=== PATIENT | male | born 1955 | race Caucasian/White ===

== ENCOUNTER 2018-02-24 14:02 | Inpatient (IN) ==
--- NOTE | 2018-02-24 16:50 | ED ---
HPI General Chief complaint: Urogenital-Male Stated complaint: blood in urine Time Seen by Provider: 02/24/18 16:01 Source: patient Mode of arrival: ambulatory Limitations: no limitations History of Present Illness HPI Narrative: Patient is a 63-year-old male here today for gross hematuria since yesterday. States was gradual onset and got progressively worse over the past 24 hours. Noticed some clots today. He states some chronic low back pain, and states "I can feel my kidneys". Denies nausea, vomiting, diarrhea, abdominal pain, fever. Nothing makes symptoms better, nothing makes it worse, but is most noticeable with urination. He is a 1/2 pack per day smoker. MD Complaint: Denies testicle pain, testicle swelling, penile discharge, dysuria , hernia, genital injury and possible STD exposure Onset (ago): day(s) (24 hours) Duration: constant Location: Reports penis, right flank and left flank Radiation: Denies penis, right testicle, left testicle, right inguinal region and left inguinal region Severity: moderate Severity scale (1-10): 1 Quality: Denies aching, burning and sharp Relieving factors: none Exacerbating factors: urination Denies new medication, recent surgery, trauma, new sexual partner and lifting Reports denies other symptoms Related Data Home Medications Medication Instructions Recorded Confirmed aspirin [Aspirin Low Dose] 81 mg PO BID 02/24/18 02/24/18 Allergies Allergy/AdvReac Type Severity Reaction Status Date / Time codeine Allergy Severe Nightmare Verified 02/24/18 16:12 Review of Systems ROS: all other systems reviewed are negative [facility] Medical History Medical History Kidney disease (Acute) Surgical History Surgical History H/O hernia repair (Acute) Hx of tonsillectomy (Acute) Family History Family History Other Family history normal Social History Social History Substance History: No History of Abuse Second Hand Smoke Exposure: No Smoking Status: Heavy tobacco smoker Tobacco Type: Cigarettes How Often Do You Have a Drink Containing Alcohol: Never Recent Travel in [facility] within the Last 8 Weeks: No Recent Out of Country Travel within the Last 8 Weeks: No Immunization History Tetanus Immunization: Unsure Exam Narrative Exam Narrative: GENERAL: Pt awake, alert, oriented. No acute distress. SKIN: Focused skin assessment warm/dry. HEAD: Atraumatic. Normocephalic. EYES: Pupils equal and round. No scleral icterus. No injection or drainage. ENT: No nasal bleeding or discharge. Mucous membranes pink and moist. NECK: Trachea midline. No JVD. CARDIOVASCULAR: Regular rate and rhythm. No murmur appreciated. RESPIRATORY: No accessory muscle use. Clear to auscultation. Breath sounds equal bilaterally. GASTROINTESTINAL: Abdomen soft, non-tender, nondistended. Hepatic and splenic margins not palpable. Bladder is non distended. (+) gross hematuria with clotting. Mild CVA tenderness bilatearlly, no bladder distension. MUSCULOSKELETAL: No obvious deformities. No clubbing. No cyanosis. No edema. NEUROLOGICAL: Awake and alert. No obvious cranial nerve deficits. Motor grossly within normal limits. Normal speech. PSYCHIATRIC: Appropriate mood and affect; insight and judgment normal. Course Initial Documented Vital Signs Temperature 98.8 F 02/24/18 14:04 Pulse Rate 70 02/24/18 14:04 Respiratory Rate 18 02/24/18 14:04 Blood Pressure 157/70 H 02/24/18 14:04 Pulse Oximetry 100 02/24/18 14:04 Last Documented Vital Signs Temperature 98.3 F 02/28/18 12:00 Pulse Rate 58 L 02/28/18 12:00 Respiratory Rate 18 02/28/18 12:00 Blood Pressure 149/72 H 02/28/18 12:00 Pulse Oximetry 98 02/28/18 12:00 Discharge Plan Discharge Disposition Patient Disposition: 30 Still Patient Discharge Condition Condition: Stable Physicians Team ED Provider: Damian Pleitez ED Midlevel Provider: Ady Gandhi Primary Care Provider: Primary Care Alfonso,Helga Attending Provider: Oxana Wilson Other Providers: Rajeev Braxton ; Cyrus Morton Status ED Status: Left Department Discharge Information Discharge Date/Time: 02/24/18 21:44 Medical Decision Making MDM Narrative Medical decision making narrative: Medical decision making narrative: During the course of the patients emergency department visit, the patients history, examination, and differential diagnosis were reviewed with the patient. He is a half pack per day smoker which increases his risk of bladder malignancy. He does not currently take any medication except for otc asa. The patient was initially provided routine labwork, ua, iv access done labwork significant for a macrocytic anemia, chloride of 121, egfr of 9, BUN of 80, Cr of 6.37, bicarb is 9.8, calcium of 6.3, protein corrected of 6.1, and (+) urinary tract infection with gross hematuira. Coags were ordered, instructed nurse to insert second IV line. Rocephin IV administered for uti, call out to nephrology for consult for renal failure. Spoke with Dr. Chaves, assembler latches and springs, who stated to order a bicarb drip-150meq in water at 100mls / hr and do CT abdomen no IV contrast-stone protocol. The case has been discussed with JAVIER who has agreed to admit the patient today. They are aware that we have discussed the case with the assembler latches and springs. They also are aware that he is on a bicarb drip. They are also aware that his potassium is normal. His hypocalcemia has not been addressed. Radiology studies were reviewed and remarkable for--- Medical Screen Exam Complete: Yes Emergency Medical Condition: Yes Medical Screen Exam Complete: Yes Emergency Medical Condition: Yes Differential Diagnosis Differential Diagnosis: Bladder malignancy, BPH, glomerulonephritis, renal failure Lab Data Lab results reviewed: Yes I reviewed the patient's lab results. Result diagrams: 02/28/18 08:53 02/28/18 08:53 Lab Results 02/24/18 02/24/18 02/24/18 Range/Units 16:15 17:04 17:04 WBC 10.4 (4.0-11.0) th/mm3 RBC 2.65 L (4.50-5.90) mil/mm3 Hgb 9.1 L (13.0-17.0) gm/dL Hct 27.8 L (39.0-51.0) % MCV 104.9 H (80.0-100.0) fL MCH 34.4 H (27.0-34.0) pg MCHC 32.8 (32.0-36.0) % RDW 17.4 H (11.6-17.2) % Plt Count 144 L (150-450) th/mm3 MPV 9.1 (7.0-11.0) fL Prelim Diff (Auto) Slide review pending Neut % (Auto) 77.3 H (16.0-70.0) % Lymph % (Auto) 15.1 (9.0-44.0) % Glynn % (Auto) 6.1 (0.0-8.0) % Eos % (Auto) 0.5 (0.0-4.0) % Baso % (Auto) 1.0 (0.0-2.0) % Neut # (Auto) 8.1 H (1.8-7.7) th/mm3 Lymph # (Auto) 1.6 (1.0-4.8) th/mm3 Glynn # (Auto) 0.6 (0.0-0.9) th/mm3 Eos # (Auto) 0.1 (0.0-0.4) th/mm3 Baso # (Auto) 0.1 (0.0-0.2) th/mm3 WBC Differential . Diff Scan Auto diff confirmed Differential Comment . Platelet Estimate Normal (Normal) Platelet Morphology Normal (Normal) Ovalocytes 1+ H (None) PT (9.8-11.6) sec INR Ratio APTT (24.3-30.1) sec Thrombin Time (13-19) sec Sodium 141 (136-145) meq/L Potassium 4.6 (3.5-5.1) meq/L Chloride 121 H (98-107) meq/L Carbon Dioxide 9.8 L (21.0-32.0) meq/L Anion Gap 10 (5-15) meq/L BUN 80 H (7-18) mg/dL Creatinine 6.37 H (0.60-1.30) mg/dL Estimated GFR 9 L (>89) mL/min Random Glucose 91 (74-106) mg/dL Hemoglobin A1c (4.3-6.0) % Calcium 6.3 L* (8.5-10.1) mg/dL Prot Corrected Calcium 6.1 L* (8.5-10.1) mg/dL Phosphorus (2.5-4.9) mg/dL Magnesium (1.5-2.5) mg/dL Iron (65-175) mcg/dL TIBC (250-450) mcg/dL % Saturation (20-50) % Total Bilirubin 0.2 (0.2-1.0) mg/dL AST 12 L (15-37) U/L ALT 19 (12-78) U/L Alkaline Phosphatase 114 (45-117) U/L Total Protein 7.7 (6.4-8.2) g/dL Total Protein (PEP) (6.4-8.2) gm/dL Albumin 3.8 (3.4-5.0) g/dL Albumin (PEP) (3.50-5.00) gm/dL Albumin/Globulin Ratio (1.39-2.23) Gsidk-3-Weeuzjkei (0.11-0.29) gm/dL Gchsw-9-Yjnolvnrw (0.22-1.00) gm/dL Beta Globulins (0.53-1.03) gm/dL Gamma Globulins (0.50-1.39) gm/dL PEP Pathologist Comment Vitamin B12 (193-986) pg/mL Folate (3.1-17.5) ng/mL TSH (0.358-3.740) uIU/mL Free T4 (0.76-1.46) ng/dL Urine Color Red (Yellw/Straw) Urine Clarity Marked H (Clear) Urine pH 6.0 (5.0-8.5) Ur Specific [place] 1.013 (1.002-1.035) Urine Protein 100 H (Neg-Trace) mg/dL Urine Glucose (UA) 50 (Negative) mg/dL Urine Ketones Negative (Negative) mg/dL Urine Occult Blood Large H (Negative) Urine Nitrate Negative (Negative) Urine Bilirubin Negative (Negative) Urine Urobilinogen Less than 2 (Less than 2) mg/dL Ur Leukocyte Esterase Trace H (Negative) Urine RBC (0-3) /hpf Urine WBC (0-5) /hpf Urine WBC Clumps Many H (None) Micro UA Comment Culture indicated Ur Microscopic Review Not Reportable Urine Culture Comments Culture indicated DANYELL Screen (Neg) Hep Bs Antigen (Nonreactive) Hep C IgG Ab (Nonreactive) Blood Type Blood Type Recheck Antibody Screen MTS Gel Crossmatch 02/24/18 02/24/18 02/24/18 Range/Units 18:33 23:35 23:35 WBC (4.0-11.0) th/mm3 RBC (4.50-5.90) mil/mm3 Hgb 7.7 L (13.0-17.0) gm/dL Hct 22.6 L (39.0-51.0) % MCV (80.0-100.0) fL MCH (27.0-34.0) pg MCHC (32.0-36.0) % RDW (11.6-17.2) % Plt Count (150-450) th/mm3 MPV (7.0-11.0) fL Prelim Diff (Auto) Neut % (Auto) (16.0-70.0) % Lymph % (Auto) (9.0-44.0) % Glynn % (Auto) (0.0-8.0) % Eos % (Auto) (0.0-4.0) % Baso % (Auto) (0.0-2.0) % Neut # (Auto) (1.8-7.7) th/mm3 Lymph # (Auto) (1.0-4.8) th/mm3 Glynn # (Auto) (0.0-0.9) th/mm3 Eos # (Auto) (0.0-0.4) th/mm3 Baso # (Auto) (0.0-0.2) th/mm3 WBC Differential Diff Scan Differential Comment Platelet Estimate (Normal) Platelet Morphology (Normal) Ovalocytes (None) PT 10.4 (9.8-11.6) sec INR 1.0 Ratio APTT 31.3 H (24.3-30.1) sec Thrombin Time 17 (13-19) sec Sodium (136-145) meq/L Potassium (3.5-5.1) meq/L Chloride (98-107) meq/L Carbon Dioxide (21.0-32.0) meq/L Anion Gap (5-15) meq/L BUN (7-18) mg/dL Creatinine (0.60-1.30) mg/dL Estimated GFR (>89) mL/min Random Glucose (74-106) mg/dL Hemoglobin A1c (4.3-6.0) % Calcium (8.5-10.1) mg/dL Prot Corrected Calcium (8.5-10.1) mg/dL Phosphorus (2.5-4.9) mg/dL Magnesium (1.5-2.5) mg/dL Iron (65-175) mcg/dL TIBC (250-450) mcg/dL % Saturation (20-50) % Total Bilirubin (0.2-1.0) mg/dL AST (15-37) U/L ALT (12-78) U/L Alkaline Phosphatase (45-117) U/L Total Protein (6.4-8.2) g/dL Total Protein (PEP) (6.4-8.2) gm/dL Albumin (3.4-5.0) g/dL Albumin (PEP) (3.50-5.00) gm/dL Albumin/Globulin Ratio (1.39-2.23) Fmezb-6-Rtkxkpbhh (0.11-0.29) gm/dL Ldwij-5-Vulfzinwa (0.22-1.00) gm/dL Beta Globulins (0.53-1.03) gm/dL Gamma Globulins (0.50-1.39) gm/dL PEP Pathologist Comment Vitamin B12 (193-986) pg/mL Folate (3.1-17.5) ng/mL TSH (0.358-3.740) uIU/mL Free T4 (0.76-1.46) ng/dL Urine Color (Yellw/Straw) Urine Clarity (Clear) Urine pH (5.0-8.5) Ur Specific [place] (1.002-1.035) Urine Protein (Neg-Trace) mg/dL Urine Glucose (UA) (Negative) mg/dL Urine Ketones (Negative) mg/dL Urine Occult Blood (Negative) Urine Nitrate (Negative) Urine Bilirubin (Negative) Urine Urobilinogen (Less than 2) mg/dL Ur Leukocyte Esterase (Negative) Urine RBC (0-3) /hpf Urine WBC (0-5) /hpf Urine WBC Clumps (None) Micro UA Comment Ur Microscopic Review Urine Culture Comments DANYELL Screen (Neg) Hep Bs Antigen (Nonreactive) Hep C IgG Ab (Nonreactive) Blood Type Blood Type Recheck Antibody Screen MTS Gel Crossmatch 02/25/18 02/25/18 02/25/18 Range/Units 02:08 02:51 02:51 WBC 7.3 (4.0-11.0) th/mm3 RBC 2.13 L (4.50-5.90) mil/mm3 Hgb 7.3 L (13.0-17.0) gm/dL Hct 21.4 L (39.0-51.0) % MCV 100.4 H D (80.0-100.0) fL MCH 34.3 H (27.0-34.0) pg MCHC 34.1 (32.0-36.0) % RDW 16.1 (11.6-17.2) % Plt Count 125 L (150-450) th/mm3 MPV 9.1 (7.0-11.0) fL Prelim Diff (Auto) Neut % (Auto) 81.1 H (16.0-70.0) % Lymph % (Auto) 11.8 (9.0-44.0) % Glynn % (Auto) 6.4 (0.0-8.0) % Eos % (Auto) 0.3 (0.0-4.0) % Baso % (Auto) 0.4 (0.0-2.0) % Neut # (Auto) 5.9 (1.8-7.7) th/mm3 Lymph # (Auto) 0.9 L (1.0-4.8) th/mm3 Glynn # (Auto) 0.5 (0.0-0.9) th/mm3 Eos # (Auto) 0.0 (0.0-0.4) th/mm3 Baso # (Auto) 0.0 (0.0-0.2) th/mm3 WBC Differential . Diff Scan Differential Comment Auto diff final Platelet Estimate (Normal) Platelet Morphology (Normal) Ovalocytes (None) PT (9.8-11.6) sec INR Ratio APTT (24.3-30.1) sec Thrombin Time (13-19) sec Sodium 145 (136-145) meq/L Potassium 4.1 (3.5-5.1) meq/L Chloride 119 H (98-107) meq/L Carbon Dioxide 10.8 L (21.0-32.0) meq/L Anion Gap 15 (5-15) meq/L BUN 76 H (7-18) mg/dL Creatinine 6.10 H (0.60-1.30) mg/dL Estimated GFR 9 L (>89) mL/min Random Glucose 82 (74-106) mg/dL Hemoglobin A1c (4.3-6.0) % Calcium 6.1 L* (8.5-10.1) mg/dL Prot Corrected Calcium 6.5 L* (8.5-10.1) mg/dL Phosphorus (2.5-4.9) mg/dL Magnesium (1.5-2.5) mg/dL Iron (65-175) mcg/dL TIBC (250-450) mcg/dL % Saturation (20-50) % Total Bilirubin 0.2 (0.2-1.0) mg/dL AST 8 L (15-37) U/L ALT 15 (12-78) U/L Alkaline Phosphatase 93 (45-117) U/L Total Protein 6.3 L D (6.4-8.2) g/dL Total Protein (PEP) (6.4-8.2) gm/dL Albumin 3.0 L D (3.4-5.0) g/dL Albumin (PEP) (3.50-5.00) gm/dL Albumin/Globulin Ratio (1.39-2.23) Kuemq-1-Ygxfogsdr (0.11-0.29) gm/dL Ljyvb-5-Stxsmcwts (0.22-1.00) gm/dL Beta Globulins (0.53-1.03) gm/dL Gamma Globulins (0.50-1.39) gm/dL PEP Pathologist Comment Vitamin B12 (193-986) pg/mL Folate (3.1-17.5) ng/mL TSH (0.358-3.740) uIU/mL Free T4 (0.76-1.46) ng/dL Urine Color (Yellw/Straw) Urine Clarity (Clear) Urine pH (5.0-8.5) Ur Specific [place] (1.002-1.035) Urine Protein (Neg-Trace) mg/dL Urine Glucose (UA) (Negative) mg/dL Urine Ketones (Negative) mg/dL Urine Occult Blood (Negative) Urine Nitrate (Negative) Urine Bilirubin (Negative) Urine Urobilinogen (Less than 2) mg/dL Ur Leukocyte Esterase (Negative) Urine RBC (0-3) /hpf Urine WBC (0-5) /hpf Urine WBC Clumps (None) Micro UA Comment Ur Microscopic Review Urine Culture Comments DANYELL Screen (Neg) Hep Bs Antigen (Nonreactive) Hep C IgG Ab (Nonreactive) Blood Type O Positive Blood Type Recheck Required Antibody Screen Negative MTS Gel Crossmatch 02/25/18 02/25/18 02/25/18 Range/Units 10:58 15:11 15:11 WBC (4.0-11.0) th/mm3 RBC (4.50-5.90) mil/mm3 Hgb (13.0-17.0) gm/dL Hct (39.0-51.0) % MCV (80.0-100.0) fL MCH (27.0-34.0) pg MCHC (32.0-36.0) % RDW (11.6-17.2) % Plt Count (150-450) th/mm3 MPV (7.0-11.0) fL Prelim Diff (Auto) Neut % (Auto) (16.0-70.0) % Lymph % (Auto) (9.0-44.0) % Glynn % (Auto) (0.0-8.0) % Eos % (Auto) (0.0-4.0) % Baso % (Auto) (0.0-2.0) % Neut # (Auto) (1.8-7.7) th/mm3 Lymph # (Auto) (1.0-4.8) th/mm3 Glynn # (Auto) (0.0-0.9) th/mm3 Eos # (Auto) (0.0-0.4) th/mm3 Baso # (Auto) (0.0-0.2) th/mm3 WBC Differential Diff Scan Differential Comment Platelet Estimate (Normal) Platelet Morphology (Normal) Ovalocytes (None) PT (9.8-11.6) sec INR Ratio APTT (24.3-30.1) sec Thrombin Time (13-19) sec Sodium 141 (136-145) meq/L Potassium 3.6 (3.5-5.1) meq/L Chloride 115 H (98-107) meq/L Carbon Dioxide 13.5 L (21.0-32.0) meq/L Anion Gap 13 (5-15) meq/L BUN 75 H (7-18) mg/dL Creatinine 6.02 H (0.60-1.30) mg/dL Estimated GFR 10 L (>89) mL/min Random Glucose 146 H (74-106) mg/dL Hemoglobin A1c (4.3-6.0) % Calcium 6.1 L* (8.5-10.1) mg/dL Prot Corrected Calcium 6.6 L* (8.5-10.1) mg/dL Phosphorus (2.5-4.9) mg/dL Magnesium (1.5-2.5) mg/dL Iron (65-175) mcg/dL TIBC (250-450) mcg/dL % Saturation (20-50) % Total Bilirubin (0.2-1.0) mg/dL AST (15-37) U/L ALT (12-78) U/L Alkaline Phosphatase (45-117) U/L Total Protein 5.9 L (6.4-8.2) g/dL Total Protein (PEP) (6.4-8.2) gm/dL Albumin (3.4-5.0) g/dL Albumin (PEP) (3.50-5.00) gm/dL Albumin/Globulin Ratio (1.39-2.23) Fexst-0-Qjluefvbz (0.11-0.29) gm/dL Sdgnm-1-Acrbhzdfc (0.22-1.00) gm/dL Beta Globulins (0.53-1.03) gm/dL Gamma Globulins (0.50-1.39) gm/dL PEP Pathologist Comment Vitamin B12 (193-986) pg/mL Folate (3.1-17.5) ng/mL TSH (0.358-3.740) uIU/mL Free T4 (0.76-1.46) ng/dL Urine Color (Yellw/Straw) Urine Clarity (Clear) Urine pH (5.0-8.5) Ur Specific [place] (1.002-1.035) Urine Protein (Neg-Trace) mg/dL Urine Glucose (UA) (Negative) mg/dL Urine Ketones (Negative) mg/dL Urine Occult Blood (Negative) Urine Nitrate (Negative) Urine Bilirubin (Negative) Urine Urobilinogen (Less than 2) mg/dL Ur Leukocyte Esterase (Negative) Urine RBC (0-3) /hpf Urine WBC (0-5) /hpf Urine WBC Clumps (None) Micro UA Comment Ur Microscopic Review Urine Culture Comments DANYELL Screen Neg (Neg) Hep Bs Antigen Nonreactive (Nonreactive) Hep C IgG Ab (Nonreactive) Blood Type Blood Type Recheck Antibody Screen MTS Gel Crossmatch 02/25/18 02/25/18 02/26/18 Range/Units 15:11 15:11 05:55 WBC 6.0 (4.0-11.0) th/mm3 RBC 1.90 L (4.50-5.90) mil/mm3 Hgb 6.4 L* (13.0-17.0) gm/dL Hct 18.9 L* (39.0-51.0) % MCV 99.5 (80.0-100.0) fL MCH 33.9 (27.0-34.0) pg MCHC 34.1 (32.0-36.0) % RDW 15.6 (11.6-17.2) % Plt Count 114 L (150-450) th/mm3 MPV 8.9 (7.0-11.0) fL Prelim Diff (Auto) Product Development Consultant Neut % (Auto) 68.6 (16.0-70.0) % Lymph % (Auto) 19.5 (9.0-44.0) % Glynn % (Auto) 10.2 H (0.0-8.0) % Eos % (Auto) 1.2 (0.0-4.0) % Baso % (Auto) 0.5 (0.0-2.0) % Neut # (Auto) 4.1 (1.8-7.7) th/mm3 Lymph # (Auto) 1.2 (1.0-4.8) th/mm3 Glynn # (Auto) 0.6 (0.0-0.9) th/mm3 Eos # (Auto) 0.1 (0.0-0.4) th/mm3 Baso # (Auto) 0.0 (0.0-0.2) th/mm3 WBC Differential . Diff Scan Differential Comment Auto diff final Platelet Estimate (Normal) Platelet Morphology (Normal) Ovalocytes (None) PT (9.8-11.6) sec INR Ratio APTT (24.3-30.1) sec Thrombin Time (13-19) sec Sodium (136-145) meq/L Potassium (3.5-5.1) meq/L Chloride (98-107) meq/L Carbon Dioxide (21.0-32.0) meq/L Anion Gap (5-15) meq/L BUN (7-18) mg/dL Creatinine (0.60-1.30) mg/dL Estimated GFR (>89) mL/min Random Glucose (74-106) mg/dL Hemoglobin A1c (4.3-6.0) % Calcium (8.5-10.1) mg/dL Prot Corrected Calcium (8.5-10.1) mg/dL Phosphorus (2.5-4.9) mg/dL Magnesium (1.5-2.5) mg/dL Iron 21 L (65-175) mcg/dL TIBC 150 L (250-450) mcg/dL % Saturation 14.0 L (20-50) % Total Bilirubin (0.2-1.0) mg/dL AST (15-37) U/L ALT (12-78) U/L Alkaline Phosphatase (45-117) U/L Total Protein (6.4-8.2) g/dL Total Protein (PEP) 6.0 L (6.4-8.2) gm/dL Albumin (3.4-5.0) g/dL Albumin (PEP) 3.76 (3.50-5.00) gm/dL Albumin/Globulin Ratio 1.67 (1.39-2.23) Yarkp-6-Ulllacxse 0.20 (0.11-0.29) gm/dL Gnrmt-2-Mvsbhewag 0.62 (0.22-1.00) gm/dL Beta Globulins 0.61 (0.53-1.03) gm/dL Gamma Globulins 0.81 (0.50-1.39) gm/dL PEP Pathologist Comment Vitamin B12 335 (193-986) pg/mL Folate 10.4 (3.1-17.5) ng/mL TSH (0.358-3.740) uIU/mL Free T4 (0.76-1.46) ng/dL Urine Color (Yellw/Straw) Urine Clarity (Clear) Urine pH (5.0-8.5) Ur Specific [place] (1.002-1.035) Urine Protein (Neg-Trace) mg/dL Urine Glucose (UA) (Negative) mg/dL Urine Ketones (Negative) mg/dL Urine Occult Blood (Negative) Urine Nitrate (Negative) Urine Bilirubin (Negative) Urine Urobilinogen (Less than 2) mg/dL Ur Leukocyte Esterase (Negative) Urine RBC (0-3) /hpf Urine WBC (0-5) /hpf Urine WBC Clumps (None) Micro UA Comment Ur Microscopic Review Urine Culture Comments DANYELL Screen (Neg) Hep Bs Antigen (Nonreactive) Hep C IgG Ab Nonreactive (Nonreactive) Blood Type Blood Type Recheck Antibody Screen MTS Gel Crossmatch 02/26/18 02/26/18 02/27/18 Range/Units 05:55 07:31 06:43 WBC 5.1 (4.0-11.0) th/mm3 RBC 2.10 L (4.50-5.90) mil/mm3 Hgb 7.0 L (13.0-17.0) gm/dL Hct 20.2 L* (39.0-51.0) % MCV 96.0 D (80.0-100.0) fL MCH 33.2 (27.0-34.0) pg MCHC 34.6 (32.0-36.0) % RDW 18.3 H D (11.6-17.2) % Plt Count 111 L (150-450) th/mm3 MPV 8.9 (7.0-11.0) fL Prelim Diff (Auto) Neut % (Auto) 59.6 (16.0-70.0) % Lymph % (Auto) 26.1 (9.0-44.0) % Glynn % (Auto) 11.4 H (0.0-8.0) % Eos % (Auto) 2.5 (0.0-4.0) % Baso % (Auto) 0.4 (0.0-2.0) % Neut # (Auto) 3.1 (1.8-7.7) th/mm3 Lymph # (Auto) 1.3 (1.0-4.8) th/mm3 Glynn # (Auto) 0.6 (0.0-0.9) th/mm3 Eos # (Auto) 0.1 (0.0-0.4) th/mm3 Baso # (Auto) 0.0 (0.0-0.2) th/mm3 WBC Differential . Diff Scan Differential Comment Auto diff final Platelet Estimate (Normal) Platelet Morphology (Normal) Ovalocytes (None) PT (9.8-11.6) sec INR Ratio APTT (24.3-30.1) sec Thrombin Time (13-19) sec Sodium 143 (136-145) meq/L Potassium 3.6 (3.5-5.1) meq/L Chloride 111 H (98-107) meq/L Carbon Dioxide 20.8 L (21.0-32.0) meq/L Anion Gap 11 (5-15) meq/L BUN 76 H (7-18) mg/dL Creatinine 5.90 H (0.60-1.30) mg/dL Estimated GFR 10 L (>89) mL/min Random Glucose 87 (74-106) mg/dL Hemoglobin A1c (4.3-6.0) % Calcium 5.6 L* (8.5-10.1) mg/dL Prot Corrected Calcium 6.2 L* (8.5-10.1) mg/dL Phosphorus 4.2 (2.5-4.9) mg/dL Magnesium (1.5-2.5) mg/dL Iron (65-175) mcg/dL TIBC (250-450) mcg/dL % Saturation (20-50) % Total Bilirubin 0.2 (0.2-1.0) mg/dL AST 10 L (15-37) U/L ALT 15 (12-78) U/L Alkaline Phosphatase 124 H (45-117) U/L Total Protein 5.6 L (6.4-8.2) g/dL Total Protein (PEP) (6.4-8.2) gm/dL Albumin 2.5 L (3.4-5.0) g/dL Albumin (PEP) (3.50-5.00) gm/dL Albumin/Globulin Ratio (1.39-2.23) Wrcex-5-Jeezoofzr (0.11-0.29) gm/dL Wtmsu-6-Cqnxijvft (0.22-1.00) gm/dL Beta Globulins (0.53-1.03) gm/dL Gamma Globulins (0.50-1.39) gm/dL PEP Pathologist Comment Vitamin B12 (193-986) pg/mL Folate (3.1-17.5) ng/mL TSH (0.358-3.740) uIU/mL Free T4 (0.76-1.46) ng/dL Urine Color (Yellw/Straw) Urine Clarity (Clear) Urine pH (5.0-8.5) Ur Specific [place] (1.002-1.035) Urine Protein (Neg-Trace) mg/dL Urine Glucose (UA) (Negative) mg/dL Urine Ketones (Negative) mg/dL Urine Occult Blood (Negative) Urine Nitrate (Negative) Urine Bilirubin (Negative) Urine Urobilinogen (Less than 2) mg/dL Ur Leukocyte Esterase (Negative) Urine RBC (0-3) /hpf Urine WBC (0-5) /hpf Urine WBC Clumps (None) Micro UA Comment Ur Microscopic Review Urine Culture Comments DANYELL Screen (Neg) Hep Bs Antigen (Nonreactive) Hep C IgG Ab (Nonreactive) Blood Type Blood Type Recheck Antibody Screen MTS Gel Crossmatch See Detail 02/27/18 02/27/18 02/27/18 Range/Units 06:43 06:43 06:43 WBC (4.0-11.0) th/mm3 RBC (4.50-5.90) mil/mm3 Hgb (13.0-17.0) gm/dL Hct (39.0-51.0) % MCV (80.0-100.0) fL MCH (27.0-34.0) pg MCHC (32.0-36.0) % RDW (11.6-17.2) % Plt Count (150-450) th/mm3 MPV (7.0-11.0) fL Prelim Diff (Auto) Neut % (Auto) (16.0-70.0) % Lymph % (Auto) (9.0-44.0) % Glynn % (Auto) (0.0-8.0) % Eos % (Auto) (0.0-4.0) % Baso % (Auto) (0.0-2.0) % Neut # (Auto) (1.8-7.7) th/mm3 Lymph # (Auto) (1.0-4.8) th/mm3 Glynn # (Auto) (0.0-0.9) th/mm3 Eos # (Auto) (0.0-0.4) th/mm3 Baso # (Auto) (0.0-0.2) th/mm3 WBC Differential Diff Scan Differential Comment Platelet Estimate (Normal) Platelet Morphology (Normal) Ovalocytes (None) PT 10.7 (9.8-11.6) sec INR 1.1 Ratio APTT (24.3-30.1) sec Thrombin Time (13-19) sec Sodium (136-145) meq/L Potassium (3.5-5.1) meq/L Chloride (98-107) meq/L Carbon Dioxide (21.0-32.0) meq/L Anion Gap (5-15) meq/L BUN (7-18) mg/dL Creatinine (0.60-1.30) mg/dL Estimated GFR (>89) mL/min Random Glucose (74-106) mg/dL Hemoglobin A1c 5.0 (4.3-6.0) % Calcium (8.5-10.1) mg/dL Prot Corrected Calcium (8.5-10.1) mg/dL Phosphorus (2.5-4.9) mg/dL Magnesium (1.5-2.5) mg/dL Iron (65-175) mcg/dL TIBC (250-450) mcg/dL % Saturation (20-50) % Total Bilirubin (0.2-1.0) mg/dL AST (15-37) U/L ALT (12-78) U/L Alkaline Phosphatase (45-117) U/L Total Protein (6.4-8.2) g/dL Total Protein (PEP) (6.4-8.2) gm/dL Albumin (3.4-5.0) g/dL Albumin (PEP) (3.50-5.00) gm/dL Albumin/Globulin Ratio (1.39-2.23) Fobrs-7-Ysffkunkb (0.11-0.29) gm/dL Rjhgu-7-Kfjcmmaif (0.22-1.00) gm/dL Beta Globulins (0.53-1.03) gm/dL Gamma Globulins (0.50-1.39) gm/dL PEP Pathologist Comment Vitamin B12 (193-986) pg/mL Folate (3.1-17.5) ng/mL TSH (0.358-3.740) uIU/mL Free T4 0.88 (0.76-1.46) ng/dL Urine Color (Yellw/Straw) Urine Clarity (Clear) Urine pH (5.0-8.5) Ur Specific [place] (1.002-1.035) Urine Protein (Neg-Trace) mg/dL Urine Glucose (UA) (Negative) mg/dL Urine Ketones (Negative) mg/dL Urine Occult Blood (Negative) Urine Nitrate (Negative) Urine Bilirubin (Negative) Urine Urobilinogen (Less than 2) mg/dL Ur Leukocyte Esterase (Negative) Urine RBC (0-3) /hpf Urine WBC (0-5) /hpf Urine WBC Clumps (None) Micro UA Comment Ur Microscopic Review Urine Culture Comments DANYELL Screen (Neg) Hep Bs Antigen (Nonreactive) Hep C IgG Ab (Nonreactive) Blood Type Blood Type Recheck Antibody Screen MTS Gel Crossmatch 02/27/18 02/28/18 02/28/18 Range/Units 06:43 08:53 08:53 WBC 5.0 (4.0-11.0) th/mm3 RBC 2.36 L (4.50-5.90) mil/mm3 Hgb 7.9 L (13.0-17.0) gm/dL Hct 22.5 L (39.0-51.0) % MCV 95.3 (80.0-100.0) fL MCH 33.6 (27.0-34.0) pg MCHC 35.2 (32.0-36.0) % RDW 17.8 H (11.6-17.2) % Plt Count 122 L (150-450) th/mm3 MPV 8.9 (7.0-11.0) fL Prelim Diff (Auto) Neut % (Auto) 58.6 (16.0-70.0) % Lymph % (Auto) 26.4 (9.0-44.0) % Glynn % (Auto) 11.1 H (0.0-8.0) % Eos % (Auto) 3.2 (0.0-4.0) % Baso % (Auto) 0.7 (0.0-2.0) % Neut # (Auto) 2.9 (1.8-7.7) th/mm3 Lymph # (Auto) 1.3 (1.0-4.8) th/mm3 Glynn # (Auto) 0.6 (0.0-0.9) th/mm3 Eos # (Auto) 0.2 (0.0-0.4) th/mm3 Baso # (Auto) 0.0 (0.0-0.2) th/mm3 WBC Differential . Diff Scan Differential Comment Auto diff final Platelet Estimate (Normal) Platelet Morphology (Normal) Ovalocytes (None) PT (9.8-11.6) sec INR Ratio APTT (24.3-30.1) sec Thrombin Time (13-19) sec Sodium 142 141 (136-145) meq/L Potassium 3.2 L 3.3 L (3.5-5.1) meq/L Chloride 108 H 105 (98-107) meq/L Carbon Dioxide 24.7 25.9 (21.0-32.0) meq/L Anion Gap 9 10 (5-15) meq/L BUN 68 H 60 H (7-18) mg/dL Creatinine 5.48 H 5.03 H (0.60-1.30) mg/dL Estimated GFR 11 L 12 L (>89) mL/min Random Glucose 89 91 (74-106) mg/dL Hemoglobin A1c (4.3-6.0) % Calcium 5.4 L* 5.4 L* (8.5-10.1) mg/dL Prot Corrected Calcium 6.0 L* 5.8 L* (8.5-10.1) mg/dL Phosphorus 4.1 (2.5-4.9) mg/dL Magnesium 1.5 (1.5-2.5) mg/dL Iron (65-175) mcg/dL TIBC (250-450) mcg/dL % Saturation (20-50) % Total Bilirubin 0.2 (0.2-1.0) mg/dL AST 12 L (15-37) U/L ALT 11 L (12-78) U/L Alkaline Phosphatase 67 (45-117) U/L Total Protein 5.6 L 6.2 L D (6.4-8.2) g/dL Total Protein (PEP) (6.4-8.2) gm/dL Albumin 2.6 L (3.4-5.0) g/dL Albumin (PEP) (3.50-5.00) gm/dL Albumin/Globulin Ratio (1.39-2.23) Ldqwx-7-Xrqttaqfm (0.11-0.29) gm/dL Bvwqy-3-Ztfsuykiw (0.22-1.00) gm/dL Beta Globulins (0.53-1.03) gm/dL Gamma Globulins (0.50-1.39) gm/dL PEP Pathologist Comment Vitamin B12 (193-986) pg/mL Folate (3.1-17.5) ng/mL TSH 1.610 (0.358-3.740) uIU/mL Free T4 (0.76-1.46) ng/dL Urine Color (Yellw/Straw) Urine Clarity (Clear) Urine pH (5.0-8.5) Ur Specific [place] (1.002-1.035) Urine Protein (Neg-Trace) mg/dL Urine Glucose (UA) (Negative) mg/dL Urine Ketones (Negative) mg/dL Urine Occult Blood (Negative) Urine Nitrate (Negative) Urine Bilirubin (Negative) Urine Urobilinogen (Less than 2) mg/dL Ur Leukocyte Esterase (Negative) Urine RBC (0-3) /hpf Urine WBC (0-5) /hpf Urine WBC Clumps (None) Micro UA Comment Ur Microscopic Review Urine Culture Comments DANYELL Screen (Neg) Hep Bs Antigen (Nonreactive) Hep C IgG Ab (Nonreactive) Blood Type Blood Type Recheck Antibody Screen MTS Gel Crossmatch Imaging Data Radiologist's impression: Abdomen/Pelvis CT 02/24/18 18:25 CONCLUSION: 1. Renal atrophy. Minimal dilatation left renal collecting system. No definite renal calculi or obstructive uropathy. Bladder unremarkable on noncontrast CT. 2. Degenerative change of the lumbar spine with mild scoliosis and multiple Schmorl's nodes.
[2018-02-24 17:23] LABS: Baso # (Auto) 0.1 th/mm3 (0.0-0.2); Eos # (Auto) 0.1 th/mm3 (0.0-0.4); Eos % (Auto) 0.5 % (0.0-4.0); Hematocrit 27.8 % (39.0-51.0); Hemoglobin 9.1 gm/dL (13.0-17.0); Lymph # (Auto) 1.6 th/mm3 (1.0-4.8); Lymph % (Auto) 15.1 % (9.0-44.0); Mean Corpuscular HGB Conc 32.8 % (32.0-36.0); Mean Corpuscular Hemoglobin 34.4 pg (27.0-34.0); Mean Corpuscular Volume 104.9 fL (80.0-100.0); Mean Platelet Volume 9.1 fL (7.0-11.0); Mono # (Auto) 0.6 th/mm3 (0.0-0.9); Mono % (Auto) 6.1 % (0.0-8.0); Neut # (Auto) 8.1 th/mm3 (1.8-7.7); Neut % (Auto) 77.3 % (16.0-70.0); Platelet Count 144 th/mm3 (150-450); Red Blood Count 2.65 mil/mm3 (4.50-5.90); Red Cell Distribution Width 17.4 % (11.6-17.2); White Blood Count 10.4 th/mm3 (4.0-11.0)
[2018-02-24 17:49] LABS: Bilirubin,Urine Negative (Negative); Color,Urine Red (Yellw/Straw); Glucose,Urine (UA) 50 mg/dL (Negative); Leukocyte Esterase,Urine Trace (Negative); Nitrite,Urine Negative (Negative); Specific Gravity,Urine 1.013 (1.002-1.035)
[2018-02-24 17:51] LABS: Clarity,Urine Marked (Clear)
[2018-02-24 17:55] LABS: Albumin 3.8 g/dL (3.4-5.0); Calcium 6.3 mg/dL (8.5-10.1); Carbon Dioxide 9.8 meq/L (21.0-32.0); Potassium 4.6 meq/L (3.5-5.1); Total Protein 7.7 g/dL (6.4-8.2)
[2018-02-24 17:56] LABS: Ovalocytes 1+; Platelet Estimate Normal (Normal); Platelet Morphology Normal (Normal)
[2018-02-24 19:03] LABS: Activated Partial Thrombo Time 31.3 sec (24.3-30.1); Prothrombin Time 10.4 sec (9.8-11.6)
--- NOTE | 2018-02-24 19:18 | CT ---
EXAM DATE: 02/24/2018 7:12 PM EDT AGE/SEX: 63 years / Male INDICATIONS: Hematuria X 2 days. CLINICAL DATA: This is the patient's initial encounter. Patient reports that signs and symptoms have been present for 2 days and indicates a pain score of 4/10. MEDICAL/SURGICAL HISTORY: Renal disease. . Hernia repair RADIATION DOSE: 3.06 CTDI (mGy) COMPARISON: No prior exams available for comparison. TECHNIQUE: Multiple contiguous axial images were obtained through the abdomen. Images were obtained using multiple row detector helical technique. Using automated exposure control and adjustment of the mA and/or kV according to patient size, radiation dose was kept as low as reasonably achievable to o btain optimal diagnostic quality images. DICOM format image data is available electronically for rev iew and comparison. FINDINGS: Lung bases are clear. No acute findings in the liver, spleen, adrenals or pancreas. Kidneys are mildl y atrophic. Minimal dilatation left renal collecting system. Ureters are difficult to follow down to the bladder but no bladder calculi identified. There is mild anasarca. No bowel obstruction. No free air. No acute bony abnormality. Multiple Schmor l's nodes in the lumbar spine with a mild scoliosis. CONCLUSION: 1. Renal atrophy. Minimal dilatation left renal collecting system. No definite renal calculi or obst ructive uropathy. Bladder unremarkable on noncontrast CT. 2. Degenerative change of the lumbar spine with mild scoliosis and multiple Schmorl's nodes. Electronically signed by: Ady Bonilla MD 02/24/2018 7:17 PM EDT
[2018-02-24] MEDS: Sodium Bicarbonate 8.4% Inj 150 MEQ in Sod Chloride 0.9% Inj 850 ML IV.CONT SCH (19:44)
[2018-02-24] MEDS ORDERED: Bisacodyl 10 MG Supp RECTAL PRN (20:09)
[2018-02-24] MEDS ORDERED: Zolpidem Tartrate 5 MG Tablet PO PRN (20:09)
[2018-02-24] MEDS ORDERED: Heparin - SQ 10,000 UNITS/ML Vial SQ SCH (21:00)
--- NOTE | 2018-02-24 21:43 | P.HPIM ---
[facility]: No Primary Care Physician Chief Complaint: Hematuria History of Present Illness: Mr. Melton is a 63-year-old male with a history of renal insufficiency who presents to the emergency room on 02/24/2018 complaining of hematuria for 2 days. The patient has seen a night worker in the [facility] but has not followed up in over a year. He was originally sent for evaluation when preop labs for cataract surgery showed abnormal renal function about 15-18 months ago. The patient states the cause of the renal dysfunction was never determined and he was encouraged to join a clinical research trial but states he was unable to do so given the commute time required to do that. He was seeing a primary care doctor, Dr. Sanchez, but he has also not followed up with the primary care doctor in over a year. He states he received cardiac clearance from a doctor in [place] for the cataract surgery and proceeded to get the cataract repaired surgically with the cardiology clearance only and this also occurred about 15 months ago. He reports recent weight loss of 4 pounds in the past 5 weeks, fatigue, and muscle cramps. He reports urinary frequency but denies any other urinary symptoms other than hematuria. He denies any fevers, chills, chest pains, nausea or vomiting or diarrhea. He was found to have BUN of 80, creatinine 6.37, EGFR of 9 and protein corrected calcium of 6.1 on initial lab results. He is admitted to the hospitalist service for acute renal failure. Inpatient Certification: I certify that the inpatient services were ordered in accordance with Medicare regulations governing the order. This includes certification that hospital inpatient services are reasonable and necessary and in the case of services not specified as inpatient-only under 42 CFR 419.22(n), that they are appropriately provided as inpatient services in accordance to with the 2-midnight benchmark under 43 CFR 412.3(e) Estimated Total Length of Stay (Days): 3 Plans for Post Hospital Care: Not yet determined Review of Systems All other systems reviewed negative except as stated in HPI PMFSH - History History Provided By: Patient - Medical History Medical History: Medical History (Last Reviewed 02/24/18 @ 21:42 by EULOGIO Chi) Kidney disease - Surgical History Surgical History: Surgical History (Last Updated 02/24/18 @ 23:21 by EULOGIO Chi) H/O hernia repair Hx of tonsillectomy - Family History Family History: Family History (Last Updated 02/24/18 @ 21:43 by EULOGIO Chi) Other Family history normal - Social History I have reviewed the patient's Social History: Yes - Tobacco History Tobacco Use In Past 30 Days: Yes Smoking Status: Current every day smoker Tobacco Type: Cigarettes - Alcohol History How Often Do You Have a Drink Containing Alcohol: Never - Substance Use History Substance History: Past History (as a young adult) - Travel History Recent Travel in the [facility] Within the Last 8 Weeks: No Recent Travel Out of the Country Within the Last 8 Weeks: No - Immunization History Tetanus Immunization: Unsure Medications and Allergies Active Medications: Active Medications Acetaminophen (Tylenol) 650 mg PO Q4H PRN PRN Reason: Temp > 100.4 Bisacodyl (Dulcolax Supp) 10 mg RECTAL DAILY PRN PRN Reason: SEVERE CONSITIPATION Heparin Sodium (Porcine) (Heparin Inj) 5,000 units SQ Q8H BRANDIN Last Admin: 02/24/18 21:00 Dose: 5,000 units Sodium Bicarbonate 150 meq/ (Sodium Chloride) 1,000 mls @ 100 mls/hr IV.CONT .Q10H BRANDIN Last Admin: 02/24/18 19:44 Dose: 100 mls/hr Calcium Gluconate 2 gm/ (Dextrose) 120 mls @ 120 mls/hr IV.SIG ONCE ONE Stop: 02/24/18 22:59 Ceftriaxone Sodium 1,000 mg/ (Sodium Chloride) 100 mls @ 200 mls/hr IV.SIG Q24H BRANDIN Lactulose (Lactulose Liq) 30 ml PO DAILY PRN PRN Reason: SEVERE CONSITIPATION Ondansetron HCl (Zofran Inj) 4 mg IV.PUSH Q6H PRN PRN Reason: NAUSEA OR VOMITING Sennosides (Senokot) 17.2 mg PO Q12H PRN PRN Reason: Moderate Constipation Sodium Chloride (Ns Flush) 2 ml IV.FLUSH PRN PRN PRN Reason: FLUSH AFTER USING IV ACCESS Zolpidem Tartrate (Ambien) 5 mg PO HS PRN PRN Reason: INSOMNIA Allergies Allergy/AdvReac Type Severity Reaction Status Date / Time codeine Allergy Severe Nightmare Verified 02/24/18 16:12 Home Medications Medication Instructions Recorded Confirmed Type aspirin [Aspirin Low Dose] 81 mg PO BID 02/24/18 02/24/18 History Exam Vital signs: Vital Signs 02/24/18 14:04 02/24/18 19:37 Temperature 98.8 F Pulse Rate 70 60 Respiratory Rate 18 15 Blood Pressure 157/70 H 157/71 H Pulse Oximetry 100 100 Intake & Output 02/24/18 02/24/18 02/25/18 06:59 18:59 06:59 Intake Total 100 / 100 Balance 100 / 100 Weight 54.431 kg Intake: IV 100 / 100 Rocephin Inj 1,000 MG In NS Inj 100 / 100 100 ML @ 200 mls/hr IV.SIG ONCE ONE Rx#:[id number] Narrative: GENERAL: This is a cachectic and disheveled male patient, in no apparent distress. SKIN: No rashes, ecchymoses or lesions. Cool and dry. HEAD: Atraumatic. Normocephalic. EYES: No scleral icterus. No injection or drainage. ENT: Nose without bleeding, purulent drainage. NECK: Trachea midline. No JVD. CARDIOVASCULAR: Regular rate and rhythm without murmurs, gallops, or rubs. RESPIRATORY: Clear to auscultation. Breath sounds equal bilaterally. No wheezes , rales, or rhonchi. GASTROINTESTINAL: Abdomen soft, non-tender, nondistended. No guarding. MUSCULOSKELETAL: Extremities without clubbing, cyanosis, or edema. No calf tenderness. NEUROLOGICAL: Awake and alert. Motor and sensory grossly within normal limits. Normal speech. . Results - Labs CBC & Chem 7: 02/24/18 17:04 02/24/18 17:04 Labs: Short CBC 02/24/18 Range/Units 17:04 WBC 10.4 (4.0-11.0) th/mm3 Hgb 9.1 L (13.0-17.0) gm/dL Hct 27.8 L (39.0-51.0) % Plt Count 144 L (150-450) th/mm3 BMP 02/24/18 17:04 Sodium 141 Potassium 4.6 Chloride 121 H Carbon Dioxide 9.8 L BUN 80 H Creatinine 6.37 H Calcium 6.3 L* Liver Function 02/24/18 Range/Units 17:04 Total Bilirubin 0.2 (0.2-1.0) mg/dL AST 12 L (15-37) U/L ALT 19 (12-78) U/L Alkaline Phosphatase 114 (45-117) U/L Albumin 3.8 (3.4-5.0) g/dL Urine 02/24/18 Range/Units 16:15 Urine Color Red (Yellw/Straw) Urine Clarity Marked H (Clear) Urine pH 6.0 (5.0-8.5) Ur Specific [place] 1.013 (1.002-1.035) Urine Protein 100 H (Neg-Trace) mg/dL Urine Glucose (UA) 50 (Negative) mg/dL - Imaging Impressions Abdomen/Pelvis CT 02/24/18 18:25 CONCLUSION: 1. Renal atrophy. Minimal dilatation left renal collecting system. No definite renal calculi or obstructive uropathy. Bladder unremarkable on noncontrast CT. 2. Degenerative change of the lumbar spine with mild scoliosis and multiple Schmorl's nodes. Caprini VTE Risk Assessment Caprini VTE Risk Assessment: Moderate/High Risk (score >= 2) Caprini Risk Assessment Model: Point Value = 1 Point Value = 2 Point Value = 3 Point Value = 5 Age 41-60 Minor surgery BMI > 25 kg/m2 Swollen legs Varicose veins or History of unexplained or recurrent spontaneous Oral contraceptives or hormone replacement Sepsis (< 1 month) Serious lung disease, including pneumonia (< 1 month) Abnormal pulmonary function Acute myocardial infarction Congestive heart failure (< 1 month) History of inflammatory bowel disease Medical patient at bed rest Age 61-74 Arthroscopic surgery Major open surgery (> 45 min) Laparoscopic surgery (> 45 min) Malignancy Confined to bed (> 72 hours) Immobilizing plaster cast Central venous access Age >= 75 History of VTE Family history of VTE Factor V Leiden Prothrombin [id number] Lupus anticoagulant Anticardiolipin antibodies Elevated serum homocysteine Heparin-induced thrombocytopenia Other congenital or acquired thrombophilia Stroke (< 1 month) Elective arthroplasty Hip, pelvis, or leg fracture Acute spinal cord injury (< 1 month) Prophylaxis Regimen: Total Risk Factor Score Risk Level Prophylaxis Regimen 0-1 Low Early ambulation 2 Moderate Order ONE of the following: *Sequential Compression Device (SCD) *Heparin 5000 units SQ BID 3-4 Higher Order ONE of the following medications: *Heparin 5000 units SQ TID *Enoxaparin/Lovenox 40 mg SQ daily (WT < 150 kg, CrCl > 30 mL/min) *Enoxaparin/Lovenox 30 mg SQ daily (WT < 150 kg, CrCl > 10-29 mL/min) *Enoxaparin/Lovenox 30 mg SQ BID (WT < 150 kg, CrCl > 30 mL/min) AND/OR *Sequential Compression Device (SCD) 5 or more Highest Order ONE of the following medications: *Heparin 5000 units SQ TID (Preferred with Epidurals) *Enoxaparin/Lovenox 40 mg SQ daily (WT < 150 kg, CrCl > 30 mL/min) *Enoxaparin/Lovenox 30 mg SQ daily (WT < 150 kg, CrCl > 10-29 mL/min) *Enoxaparin/Lovenox 30 mg SQ BID (WT < 150 kg, CrCl > 30 mL/min) AND *Sequential Compression Device (SCD) Assessment and Plan - Plan Mr. Melton is a 63-year-old male with a history of renal insufficiency who presents to the emergency room on 02/24/2018 complaining of hematuria for 2 days. The patient has seen a night worker in the [place] area but has not followed up in over a year. He was found to have BUN of 80, creatinine 6.37, EGFR of 9 and protein corrected calcium of 6.1 on initial lab results. He is admitted to the hospitalist service for acute renal failure. Acute renal failure -Dr. Braxton note, remote encoding operations supervisor for nephrology, was consulted by emergency room physician -Continue bicarb drip at 100 cc/h as recommended by Dr. Braxton -Abdomen/pelvis CT without contrast showed renal atrophy and minimal dilation of the left renal collecting system. No renal calculi or obstructive uropathy were noted on CT. Bladder was unremarkable. -Avoid nephrotoxins -Repeat labs and follow results -Monitor intake and output Hypocalcemia -Protein corrected calcium 6.1 -IV replacement ordered -Recheck labs and follow results, replace as indicated -Continuous cardiac telemetry to monitor for arrhythmias Hematuria -UA consistent with possible UTI -Ceftriaxone 1 g IV every 24 hours -Follow urine culture results and adjust treatment as indicated Anemia -denies using alcohol for the past 10 years -Related to chronic renal failure versus acute blood loss from hematuria -Monitor H&H and manage based on trend Tobacco abuse -recommended cessation DVT prophylaxis -SCDs Discussed Condition With: Patient, RN, and Dr. Albarado .
[2018-02-24] MEDS ORDERED: Calcium Gluconate Inj 2 GM in Dextrose 5% in Water Inj 100 ML IV.SIG ONE ×2 (22:00)
[2018-02-24 23:47] LABS: Hematocrit 22.6 % (39.0-51.0); Hemoglobin 7.7 gm/dL (13.0-17.0)
[2018-02-25 04:01] LABS: Baso % (Auto) 0.4 % (0.0-2.0); Eos % (Auto) 0.3 % (0.0-4.0); Hematocrit 21.4 % (39.0-51.0); Hemoglobin 7.3 gm/dL (13.0-17.0); Lymph # (Auto) 0.9 th/mm3 (1.0-4.8); Lymph % (Auto) 11.8 % (9.0-44.0); Mean Corpuscular HGB Conc 34.1 % (32.0-36.0); Mean Corpuscular Hemoglobin 34.3 pg (27.0-34.0); Mean Corpuscular Volume 100.4 fL (80.0-100.0); Mean Platelet Volume 9.1 fL (7.0-11.0); Mono # (Auto) 0.5 th/mm3 (0.0-0.9); Mono % (Auto) 6.4 % (0.0-8.0); Neut # (Auto) 5.9 th/mm3 (1.8-7.7); Neut % (Auto) 81.1 % (16.0-70.0); Platelet Count 125 th/mm3 (150-450); Red Blood Count 2.13 mil/mm3 (4.50-5.90); Red Cell Distribution Width 16.1 % (11.6-17.2); White Blood Count 7.3 th/mm3 (4.0-11.0)
[2018-02-25 04:10] LABS: Calcium 6.1 mg/dL (8.5-10.1); Carbon Dioxide 10.8 meq/L (21.0-32.0); Potassium 4.1 meq/L (3.5-5.1); Total Protein 6.3 g/dL (6.4-8.2)
[2018-02-25] MEDS ORDERED: Calcium Gluconate Inj 1 GM in Dextrose 5% in Water Inj 100 ML IV.SIG ONE ×2 (05:00)
[2018-02-25] MEDS: Sodium Bicarbonate 8.4% Inj 150 MEQ in Water for Inj, Sterile 850 ML IV.CONT SCH ×2 (10:21→21:22)
[2018-02-25 12:27] LABS: Calcium 6.1 mg/dL (8.5-10.1); Carbon Dioxide 13.5 meq/L (21.0-32.0); Potassium 3.6 meq/L (3.5-5.1)
[2018-02-25 12:43] LABS: Total Protein 5.9 g/dL (6.4-8.2)
--- NOTE | 2018-02-25 12:54 | P.PNIM ---
Subjective Interval history: Tmax is 100.2 overnight. Renal function shows slight improvement. Further monitoring still warranted. Patient does have a history of prior renal disease which she says was worked up including a renal ultrasound in the past but no etiology was found and he says his kidney function improved so no further monitoring occurred at that time. He has been taken aspirin for back pain and this could possibly be contributory. Physical Exam Vital signs: Vital Signs 02/24/18 14:04 02/24/18 19:37 02/24/18 21:52 Temperature 98.8 F 98.6 F Pulse Rate 70 60 62 Respiratory Rate 18 15 17 Blood Pressure 157/70 H 157/71 H 150/58 H Pulse Oximetry 100 100 100 02/25/18 00:00 02/25/18 04:00 02/25/18 05:45 Temperature 99.1 F 99.0 F 98.9 F Pulse Rate 68 70 64 Respiratory Rate 20 20 16 Blood Pressure 157/63 H 166/62 H 157/71 H Pulse Oximetry 98 99 98 02/25/18 08:00 02/25/18 11:40 02/25/18 12:00 Temperature 100.2 F H 99.6 F Pulse Rate 71 60 61 Respiratory Rate 18 16 Blood Pressure 156/58 H 129/55 L Pulse Oximetry 98 98 Intake & Output 02/24/18 02/25/18 02/25/18 18:59 06:59 18:59 Intake Total 330 / 330 900 / 900 Balance 330 / 330 900 / 900 Weight 54.431 kg Intake: IV 330 / 330 900 / 900 Sodium Bicarbonate 8.4% Inj 150 900 / 900 MEQ In NS Inj 850 ML @ 100 mls /hr IV.CONT .Q10H BRANDIN Rx#: [id number] Calcium Gluconate Inj 1 GM In 230 / 230 D5W Inj 100 ML @ 110 mls/hr IV. SIG ONCE ONE Rx#:[id number] Rocephin Inj 1,000 MG In NS Inj 100 / 100 100 ML @ 200 mls/hr IV.SIG ONCE ONE Rx#:[id number] Other: # Voids 2 Date of Last Bowel Movement 02/24/18 Narrative: GENERAL: NAD, A&Ox3 HEAD: Normocephalic. NECK: Supple, trachea midline. No lymphadenopathy. EYES: No scleral icterus. No injection or drainage. CARDIOVASCULAR: Regular rate and rhythm without murmurs, gallops, or rubs. RESPIRATORY: Breath sounds equal bilaterally. No accessory muscle use. GASTROINTESTINAL: Abdomen soft, non-tender, nondistended. MUSCULOSKELETAL: No cyanosis, or edema. SKIN: Warm and dry. NEURO: No focal neurological deficits. Results - Labs CBC & Chem 7: 02/25/18 02:51 02/25/18 10:58 Laboratory Results - last 24 hr 02/24/18 02/24/18 02/24/18 16:15 17:04 17:04 WBC 10.4 RBC 2.65 L Hgb 9.1 L Hct 27.8 L MCV 104.9 H MCH 34.4 H MCHC 32.8 RDW 17.4 H Plt Count 144 L MPV 9.1 Prelim Diff (Auto) Slide review pending Neut % (Auto) 77.3 H Lymph % (Auto) 15.1 [place] % (Auto) 6.1 Eos % (Auto) 0.5 Baso % (Auto) 1.0 Neut # (Auto) 8.1 H Lymph # (Auto) 1.6 [place] # (Auto) 0.6 Eos # (Auto) 0.1 Baso # (Auto) 0.1 WBC Differential . Diff Scan Auto diff confirmed Differential Comment . Platelet Estimate Normal Platelet Morphology Normal Ovalocytes 1+ H PT INR APTT Sodium 141 Potassium 4.6 Chloride 121 H Carbon Dioxide 9.8 L Anion Gap 10 BUN 80 H Creatinine 6.37 H Estimated GFR 9 L Random Glucose 91 Calcium 6.3 L* Prot Corrected Calcium 6.1 L* Total Bilirubin 0.2 AST 12 L ALT 19 Alkaline Phosphatase 114 Total Protein 7.7 Albumin 3.8 Urine Color Red Urine Clarity Marked H Urine pH 6.0 Ur Specific [place] 1.013 Urine Protein 100 H Urine Glucose (UA) 50 Urine Ketones Negative Urine Occult Blood Large H Urine Nitrate Negative Urine Bilirubin Negative Urine Urobilinogen Less than 2 Ur Leukocyte Esterase Trace H Urine RBC Urine WBC Urine WBC Clumps Many H Micro UA Comment Culture indicated Ur Microscopic Review Not Reportable Urine Culture Comments Culture indicated Blood Type Blood Type Recheck Antibody Screen 02/24/18 02/24/18 02/25/18 18:33 23:35 02:08 WBC RBC Hgb 7.7 L Hct 22.6 L MCV MCH MCHC RDW Plt Count MPV Prelim Diff (Auto) Neut % (Auto) Lymph % (Auto) [place] % (Auto) Eos % (Auto) Baso % (Auto) Neut # (Auto) Lymph # (Auto) [place] # (Auto) Eos # (Auto) Baso # (Auto) WBC Differential Diff Scan Differential Comment Platelet Estimate Platelet Morphology Ovalocytes PT 10.4 INR 1.0 APTT 31.3 H Sodium Potassium Chloride Carbon Dioxide Anion Gap BUN Creatinine Estimated GFR Random Glucose Calcium Prot Corrected Calcium Total Bilirubin AST ALT Alkaline Phosphatase Total Protein Albumin Urine Color Urine Clarity Urine pH Ur Specific [place] Urine Protein Urine Glucose (UA) Urine Ketones Urine Occult Blood Urine Nitrate Urine Bilirubin Urine Urobilinogen Ur Leukocyte Esterase Urine RBC Urine WBC Urine WBC Clumps Micro UA Comment Ur Microscopic Review Urine Culture Comments Blood Type O Positive Blood Type Recheck Required Antibody Screen Negative 02/25/18 02/25/18 02/25/18 02:51 02:51 10:58 WBC 7.3 RBC 2.13 L Hgb 7.3 L Hct 21.4 L MCV 100.4 H D MCH 34.3 H MCHC 34.1 RDW 16.1 Plt Count 125 L MPV 9.1 Prelim Diff (Auto) Neut % (Auto) 81.1 H Lymph % (Auto) 11.8 [place] % (Auto) 6.4 Eos % (Auto) 0.3 Baso % (Auto) 0.4 Neut # (Auto) 5.9 Lymph # (Auto) 0.9 L [place] # (Auto) 0.5 Eos # (Auto) 0.0 Baso # (Auto) 0.0 WBC Differential . Diff Scan Differential Comment Auto diff final Platelet Estimate Platelet Morphology Ovalocytes PT INR APTT Sodium 145 141 Potassium 4.1 3.6 Chloride 119 H 115 H Carbon Dioxide 10.8 L 13.5 L Anion Gap 15 13 BUN 76 H 75 H Creatinine 6.10 H 6.02 H Estimated GFR 9 L 10 L Random Glucose 82 146 H Calcium 6.1 L* 6.1 L* Prot Corrected Calcium 6.5 L* Total Bilirubin 0.2 AST 8 L ALT 15 Alkaline Phosphatase 93 Total Protein 6.3 L D Albumin 3.0 L D Urine Color Urine Clarity Urine pH Ur Specific [place] Urine Protein Urine Glucose (UA) Urine Ketones Urine Occult Blood Urine Nitrate Urine Bilirubin Urine Urobilinogen Ur Leukocyte Esterase Urine RBC Urine WBC Urine WBC Clumps Micro UA Comment Ur Microscopic Review Urine Culture Comments Blood Type Blood Type Recheck Antibody Screen - Imaging Impressions Abdomen/Pelvis CT 02/24/18 18:25 CONCLUSION: 1. Renal atrophy. Minimal dilatation left renal collecting system. No definite renal calculi or obstructive uropathy. Bladder unremarkable on noncontrast CT. 2. Degenerative change of the lumbar spine with mild scoliosis and multiple Schmorl's nodes. Assessment and Plan - Plan 63-year-old male with a history of renal insufficiency who presents to the emergency room on 02/24/2018 complaining of hematuria for 2 days. The patient has seen a court officer in the [place] area but has not followed up in over a year. He was found to have BUN of 80, creatinine 6.37, EGFR of 9 and protein corrected calcium of 6.1 on initial lab results. He is admitted to the hospitalist service for acute renal failure. Acute renal failure Slightly improved with IV hydration Nephrology following Continue to monitor renal function Avoid nephrotoxins Monitor creatinine and BUN Monitor I&O Hypocalcemia Supplement Follow calcium levels Follow on telemetry Hematuria Possible UTI Continue IV Rocephin Probiotics Follow urine cultures Anemia Follow CBC Etiology may be related to renal disease Tobacco abuse Cessation recommended DVT prophylaxis SCDs
[2018-02-25] MEDS: Lactobacillus Acidophilus/L. Spores Tablet PO SCH ×2 (13:47→18:05)
--- NOTE | 2018-02-25 14:10 | P.CONNP ---
History of Present Illness Service: Nephrology Reason for Consult: LILLIAN Primary Care Provider: No Primary Care Physician Chief Complaint: Hematuria History of Present Illness: This is a 63 year old male who presented with sudden onset of gross hematuria. He denies dysuria, fever or chills. Patient also denies shortness of breath. For back pain he has been taking 2 tablets of Aspirin daily, otherwise he is not any medications. He was noted to be in renal failure. CT scan of the abdomen/pelvis revealed findings consistent with atrophic/small kidneys but no hydronephrosis or renal calculi. He is in renal failure. He had severe metabolic acidosis. Patient had a creatinine of 6.37 on admission, BUN of 80. His creatinine was less than 1 in 2008. No other previous labs are available. Review of Systems Constitutional: Reports weight loss Eyes: Denies blind spots, Denies blurry vision Cardiovascular: Denies chest pain, Denies shortness of breath, Denies shortness of breath with activity Respiratory: Denies cough Gastrointestinal: Denies abdominal pain, Denies black, tarry stools, Denies constipation Genitourinary: Reports blood in urine Skin/Breast: Denies non-healing lesions Neurologic: Denies localized weakness, Denies loss of vision PMFSH - History History Provided By: Patient - Medical History Medical History: Medical History (Last Reviewed 02/24/18 @ 21:42 by EULOGIO Chi) Kidney disease - Surgical History Surgical History: Surgical History (Last Updated 02/24/18 @ 23:21 by EULOGIO Chi) H/O hernia repair Hx of tonsillectomy - Family History Family History: Family History (Last Updated 02/24/18 @ 21:43 by EULOGIO Chi) Other Family history normal - Tobacco History Second Hand Smoke Exposure: No Tobacco Use In Past 30 Days: No Smoking Status: Heavy tobacco smoker Tobacco Type: Cigarettes - Alcohol History How Often Do You Have a Drink Containing Alcohol: Never - Substance Use History Substance History: No History of Abuse - Travel History Recent Travel in the [place] Within the Last 8 Weeks: No Recent Travel Out of the Country Within the Last 8 Weeks: No - Immunization History Tetanus Immunization: Unsure Medications and Allergies Active Medications: Active Medications Acetaminophen (Tylenol) 650 mg PO Q4H PRN PRN Reason: Temp > 100.4 Bisacodyl (Dulcolax Supp) 10 mg RECTAL DAILY PRN PRN Reason: SEVERE CONSITIPATION Calcium Carbonate (Tums Chew) 500 mg CHEW BID [facility] Ceftriaxone Sodium 1,000 mg/ (Sodium Chloride) 100 mls @ 200 mls/hr IV.SIG Q24H [facility] Sodium Bicarbonate 150 meq/ (Sterile Water) 1,000 mls @ 100 mls/hr IV.CONT .Q10H [facility] Last Admin: 02/25/18 10:21 Dose: 100 mls/hr Lactobacillus Acidophilus (Lactinex) 1 tab PO TID [facility] Last Admin: 02/25/18 13:47 Dose: 1 tab Lactulose (Lactulose Liq) 30 ml PO DAILY PRN PRN Reason: SEVERE CONSITIPATION Ondansetron HCl (Zofran Inj) 4 mg IV.PUSH Q6H PRN PRN Reason: NAUSEA OR VOMITING Sennosides (Senokot) 17.2 mg PO Q12H PRN PRN Reason: Moderate Constipation Sodium Chloride (Ns Flush) 2 ml IV.FLUSH PRN PRN PRN Reason: FLUSH AFTER USING IV ACCESS Zolpidem Tartrate (Ambien) 5 mg PO HS PRN PRN Reason: INSOMNIA Allergies Allergy/AdvReac Type Severity Reaction Status Date / Time codeine Allergy Severe Nightmare Verified 02/24/18 16:12 Home Medications Medication Instructions Recorded Confirmed Type aspirin [Aspirin Low Dose] 81 mg PO BID 02/24/18 02/24/18 History Exam Vital signs: Vital Signs 02/24/18 14:04 02/24/18 19:37 02/24/18 21:52 Temperature 98.8 F 98.6 F Pulse Rate 70 60 62 Respiratory Rate 18 15 17 Blood Pressure 157/70 H 157/71 H 150/58 H Pulse Oximetry 100 100 100 02/25/18 00:00 02/25/18 04:00 02/25/18 05:45 Temperature 99.1 F 99.0 F 98.9 F Pulse Rate 68 70 64 Respiratory Rate 20 20 16 Blood Pressure 157/63 H 166/62 H 157/71 H Pulse Oximetry 98 99 98 02/25/18 08:00 02/25/18 11:40 02/25/18 12:00 Temperature 100.2 F H 99.6 F Pulse Rate 71 60 61 Respiratory Rate 18 16 Blood Pressure 156/58 H 129/55 L Pulse Oximetry 98 98 Intake & Output 10/31/18 11/01/18 11/01/18 18:59 06:59 18:59 Intake Total 330 / 330 900 / 900 Balance 330 / 330 900 / 900 Weight 54.431 kg Intake: IV 330 / 330 900 / 900 Sodium Bicarbonate 8.4% Inj 150 900 / 900 MEQ In NS Inj 850 ML @ 100 mls /hr IV.CONT .Q10H [facility] Rx#: [id number] Calcium Gluconate Inj 1 GM In 230 / 230 D5W Inj 100 ML @ 110 mls/hr IV. SIG ONCE ONE Rx#:[id number] Rocephin Inj 1,000 MG In NS Inj 100 / 100 100 ML @ 200 mls/hr IV.SIG ONCE ONE Rx#:[id number] Other: # Voids 2 Date of Last Bowel Movement 02/24/18 - Constitutional no acute distress, chronically ill appearing - Routine HEENT Exam Head: Present: normocephalic, atraumatic Eye: Present: EOMI, PERRL - Routine Neck Exam Present: supple, full ROM. Absent: JVD, carotid bruit, lymphadenopathy, thyromegaly - Routine Cardiovascular Exam Present: RRR, S1, S2. Absent: murmur - Routine Abdominal Exam Present: soft, normoactive bowel sounds. Absent: tenderness, distended - Routine Skin Exam Present: intact. Absent: cyanosis - Routine Neurological Exam Present: alert, oriented X3, CN II-XII intact, normal speech Results - Lab Results 02/25/18 02:51 02/25/18 10:58 Most recent lab results Calcium 6.1 mg/dL (8.5-10.1) L* 02/25/18 10:58 Assessment and Plan - Assessment (1) Acute kidney injury Code(s): N17.9 - Acute kidney failure, unspecified Status: Acute Plan: Etiology is unclear. He has gross hematuria, but there is no obstruction. He is non oliguric. He may have UTI, and infection, dehydration could have caused renal failure due to pre-renal or may have progressed to ATN. However UA is abnormal (it could be abnormal due to UTI and hematuria), and so I will order serologies. As mentioned above, we do not have labs after 2007 until this admission. It is possible that he has progressive CKD reaching ESRD or stage V CKD. He does have atrophic kidneys, severe metabolic acidosis, and anemia, all supportive of this hypothesis. Monitor. Continue bicarbonate drip as ordered. Recommend Urology evaluation. Continue antibiotic. (2) Metabolic acidosis Code(s): E87.2 - Acidosis Status: Acute Plan: continue bicarbonate drip. Monitor. May need dialysis. (3) Hematuria Code(s): R31.9 - Hematuria, unspecified Status: Acute Plan: Due to UTI? Rule out vasculitis/GN. Needs Urology evaluation as well. (4) Anemia Code(s): D64.9 - Anemia, unspecified Status: Acute Plan: Likely going to be multifactorial: anemia of chronic disease as well as blood loss. May need transfusion. Order workup. - Attending Attestation Thanks for the consult
[2018-02-25] MEDS: Sodium Bicarbonate 8.4% Inj 150 MEQ in Sod Chloride 0.9% Inj 850 ML IV.CONT SCH (14:13)
[2018-02-25 16:28] LABS: Folate 10.4 ng/mL (3.1-17.5)
[2018-02-25] MEDS: Acetaminophen 325 MG Tablet PO PRN (21:22)
[2018-02-26 07:02] LABS: Baso % (Auto) 0.5 % (0.0-2.0); Eos # (Auto) 0.1 th/mm3 (0.0-0.4); Eos % (Auto) 1.2 % (0.0-4.0); Lymph # (Auto) 1.2 th/mm3 (1.0-4.8); Lymph % (Auto) 19.5 % (9.0-44.0); Mean Corpuscular HGB Conc 34.1 % (32.0-36.0); Mean Corpuscular Hemoglobin 33.9 pg (27.0-34.0); Mean Corpuscular Volume 99.5 fL (80.0-100.0); Mean Platelet Volume 8.9 fL (7.0-11.0); Mono # (Auto) 0.6 th/mm3 (0.0-0.9); Mono % (Auto) 10.2 % (0.0-8.0); Neut # (Auto) 4.1 th/mm3 (1.8-7.7); Neut % (Auto) 68.6 % (16.0-70.0); Platelet Count 114 th/mm3 (150-450); Red Cell Distribution Width 15.6 % (11.6-17.2)
[2018-02-26 07:09] LABS: Hematocrit 18.9 % (39.0-51.0); Hemoglobin 6.4 gm/dL (13.0-17.0)
[2018-02-26] MEDS: Sodium Bicarbonate 8.4% Inj 150 MEQ in Water for Inj, Sterile 850 ML IV.CONT SCH (07:30)
[2018-02-26 07:33] LABS: Albumin 2.5 g/dL (3.4-5.0); Calcium 5.6 mg/dL (8.5-10.1); Carbon Dioxide 20.8 meq/L (21.0-32.0); Phosphorus 4.2 mg/dL (2.5-4.9); Potassium 3.6 meq/L (3.5-5.1)
[2018-02-26 07:40] LABS: Total Protein 5.6 g/dL (6.4-8.2)
[2018-02-26] MEDS ORDERED: Sodium Chlor 0.9% Inj 250 ML IV.SIG SCH (08:00)
[2018-02-26] MEDS ORDERED: Calcium Gluconate Inj 2 GM in Dextrose 5% in Water Inj 100 ML IV.SIG ONE ×2 (08:00)
[2018-02-26] MEDS: Lactobacillus Acidophilus/L. Spores Tablet PO SCH ×3 (10:20→18:03)
--- NOTE | 2018-02-26 12:08 | P.PNIM ---
Subjective Interval history: Chief Complaint: Hematuria History of Present Illness: Mr. Melton is a 63-year-old male with a history of renal insufficiency who presents to the emergency room on 02/24/2018 complaining of hematuria for 2 days. The patient has seen a sheet rock installer in the [facility] but has not followed up in over a year. He was originally sent for evaluation when preop labs for cataract surgery showed abnormal renal function about 15-18 months ago. The patient states the cause of the renal dysfunction was never determined and he was encouraged to join a clinical research trial but states he was unable to do so given the commute time required to do that. He was seeing a primary care doctor, Dr. Sanchez, but he has also not followed up with the primary care doctor in over a year. He states he received cardiac clearance from a doctor in [place] for the cataract surgery and proceeded to get the cataract repaired surgically with the cardiology clearance only and this also occurred about 15 months ago. He reports recent weight loss of 4 pounds in the past 5 weeks, fatigue, and muscle cramps. He reports urinary frequency but denies any other urinary symptoms other than hematuria. He denies any fevers, chills, chest pains, nausea or vomiting or diarrhea. He was found to have BUN of 80, creatinine 6.37, EGFR of 9 and protein corrected calcium of 6.1 on initial lab results. He is admitted to the hospitalist service for acute renal failure. 11-1 Tmax is 100.2 overnight. Renal function shows slight improvement. Further monitoring still warranted. Patient does have a history of prior renal disease which she says was worked up including a renal ultrasound in the past but no etiology was found and he says his kidney function improved so no further monitoring occurred at that time. He has been taken aspirin for back pain and this could possibly be contributory. 11-2 ANEMIA WILL TRANSFUSE HYPOCALCEMIA WILL REPLACE CONSULT UROLOGY REGARDING HEMATURIA Physical Exam Vital signs: Vital Signs 02/25/18 16:00 02/25/18 20:00 02/25/18 23:50 Temperature 100.3 F H 98.4 F 99.1 F Pulse Rate 64 65 57 L Respiratory Rate 16 16 16 Blood Pressure 148/66 H 127/60 120/57 L Pulse Oximetry 98 97 97 02/26/18 02:33 02/26/18 04:00 02/26/18 07:34 Temperature 97.6 F 98.8 F Pulse Rate 52 L 56 L 58 L Respiratory Rate 16 12 Blood Pressure 119/69 132/64 Pulse Oximetry 99 98 02/26/18 12:00 Temperature 98.5 F Pulse Rate 60 Respiratory Rate 12 Blood Pressure 148/56 H Pulse Oximetry 100 Intake & Output 02/25/18 02/26/18 02/26/18 18:59 06:59 18:59 Intake Total 1500 / 1500 1000 / 1000 1000 / 1000 Balance 1500 / 1500 1000 / 1000 1000 / 1000 Intake: IV 1000 / 1000 1000 / 1000 1000 / 1000 Sodium Bicarbonate 8.4% Inj 150 900 / 900 MEQ In NS Inj 850 ML @ 100 mls /hr IV.CONT .Q10H [facility] Rx#: [id number] Sodium Bicarbonate 8.4% Inj 150 1000 / 1000 1000 / 1000 MEQ In Sterile Water for Inj 850 ML @ 100 mls/hr IV.CONT . Q10H [facility] Rx#:[id number] Rocephin Inj 1,000 MG In NS Inj 100 / 100 100 ML @ 200 mls/hr IV.SIG Q24H [facility] Rx#:[id number] Oral 500 / 500 Other: # Voids 6 Date of Last Bowel Movement 02/24/18 Narrative: GENERAL: NAD, A&Ox3 HEAD: Normocephalic. NECK: Supple, trachea midline. No lymphadenopathy. EYES: No scleral icterus. No injection or drainage. CARDIOVASCULAR: Regular rate and rhythm without murmurs, gallops, or rubs. RESPIRATORY: Breath sounds equal bilaterally. No accessory muscle use. GASTROINTESTINAL: Abdomen soft, non-tender, nondistended. MUSCULOSKELETAL: No cyanosis, or edema. SKIN: Warm and dry. NEURO: No focal neurological deficits. Results - Labs CBC & Chem 7: 02/26/18 05:55 02/26/18 05:55 Laboratory Results - last 24 hr 02/24/18 02/25/18 02/25/18 16:15 10:58 15:11 WBC RBC Hgb Hct MCV MCH MCHC RDW Plt Count MPV Prelim Diff (Auto) Neut % (Auto) Lymph % (Auto) Wells % (Auto) Eos % (Auto) Baso % (Auto) Neut # (Auto) Lymph # (Auto) Wells # (Auto) Eos # (Auto) Baso # (Auto) WBC Differential Differential Comment Sodium 141 Potassium 3.6 Chloride 115 H Carbon Dioxide 13.5 L Anion Gap 13 BUN 75 H Creatinine 6.02 H Estimated GFR 10 L Random Glucose 146 H Calcium 6.1 L* Prot Corrected Calcium 6.6 L* Phosphorus Iron TIBC % Saturation Total Bilirubin AST ALT Alkaline Phosphatase Total Protein 5.9 L Total Protein (PEP) Albumin Albumin (PEP) Albumin/Globulin Ratio Sfktt-0-Hdgvolzuz Qgegd-1-Vthsrmlet Beta Globulins Gamma Globulins Vitamin B12 Folate Urine Color Red Urine Clarity Marked H Urine pH 6.0 Ur Specific [place] 1.013 Urine Protein 100 H Urine Glucose (UA) 50 Urine Ketones Negative Urine Occult Blood Large H Urine Nitrate Negative Urine Bilirubin Negative Urine Urobilinogen Less than 2 Ur Leukocyte Esterase Trace H Urine RBC Urine WBC Urine WBC Clumps Many H Micro UA Comment Culture indicated Urine Culture Comments Culture indicated Hep Bs Antigen Nonreactive Hep C IgG Ab MTS Gel Crossmatch 02/25/18 02/25/18 02/26/18 15:11 15:11 05:55 WBC 6.0 RBC 1.90 L Hgb 6.4 L* Hct 18.9 L* MCV 99.5 MCH 33.9 MCHC 34.1 RDW 15.6 Plt Count 114 L MPV 8.9 Prelim Diff (Auto) Exercise Specialist Neut % (Auto) 68.6 Lymph % (Auto) 19.5 Wells % (Auto) 10.2 H Eos % (Auto) 1.2 Baso % (Auto) 0.5 Neut # (Auto) 4.1 Lymph # (Auto) 1.2 Wells # (Auto) 0.6 Eos # (Auto) 0.1 Baso # (Auto) 0.0 WBC Differential . Differential Comment Auto diff final Sodium Potassium Chloride Carbon Dioxide Anion Gap BUN Creatinine Estimated GFR Random Glucose Calcium Prot Corrected Calcium Phosphorus Iron 21 L TIBC 150 L % Saturation 14.0 L Total Bilirubin AST ALT Alkaline Phosphatase Total Protein Total Protein (PEP) 6.0 L Albumin Albumin (PEP) 3.76 Albumin/Globulin Ratio 1.67 Zrhyb-4-Frhbkmiwu 0.20 Uevoz-6-Mwvobextz 0.62 Beta Globulins 0.61 Gamma Globulins 0.81 Vitamin B12 335 Folate 10.4 Urine Color Urine Clarity Urine pH Ur Specific [place] Urine Protein Urine Glucose (UA) Urine Ketones Urine Occult Blood Urine Nitrate Urine Bilirubin Urine Urobilinogen Ur Leukocyte Esterase Urine RBC Urine WBC Urine WBC Clumps Micro UA Comment Urine Culture Comments Hep Bs Antigen Hep C IgG Ab Nonreactive MTS Gel Crossmatch 02/26/18 02/26/18 05:55 07:31 WBC RBC Hgb Hct MCV MCH MCHC RDW Plt Count MPV Prelim Diff (Auto) Neut % (Auto) Lymph % (Auto) Wells % (Auto) Eos % (Auto) Baso % (Auto) Neut # (Auto) Lymph # (Auto) Wells # (Auto) Eos # (Auto) Baso # (Auto) WBC Differential Differential Comment Sodium 143 Potassium 3.6 Chloride 111 H Carbon Dioxide 20.8 L Anion Gap 11 BUN 76 H Creatinine 5.90 H Estimated GFR 10 L Random Glucose 87 Calcium 5.6 L* Prot Corrected Calcium 6.2 L* Phosphorus 4.2 Iron TIBC % Saturation Total Bilirubin 0.2 AST 10 L ALT 15 Alkaline Phosphatase 124 H Total Protein 5.6 L Total Protein (PEP) Albumin 2.5 L Albumin (PEP) Albumin/Globulin Ratio Lhcqe-9-Xlaejqpym Zohgi-3-Gkbmavalg Beta Globulins Gamma Globulins Vitamin B12 Folate Urine Color Urine Clarity Urine pH Ur Specific [place] Urine Protein Urine Glucose (UA) Urine Ketones Urine Occult Blood Urine Nitrate Urine Bilirubin Urine Urobilinogen Ur Leukocyte Esterase Urine RBC Urine WBC Urine WBC Clumps Micro UA Comment Urine Culture Comments Hep Bs Antigen Hep C IgG Ab MTS Gel Crossmatch See Detail Microbiology 02/24/18 16:15 Clean Catch Urine Urine Culture - Final Escherichia coli - Imaging ITS Impressions Abdomen/Pelvis CT 02/24/18 18:25 CONCLUSION: 1. Renal atrophy. Minimal dilatation left renal collecting system. No definite renal calculi or obstructive uropathy. Bladder unremarkable on noncontrast CT. 2. Degenerative change of the lumbar spine with mild scoliosis and multiple Schmorl's nodes. Assessment and Plan - Plan 63-year-old male with a history of renal insufficiency who presents to the emergency room on 02/24/2018 complaining of hematuria for 2 days. The patient has seen a sheet rock installer in the [place] area but has not followed up in over a year. He was found to have BUN of 80, creatinine 6.37, EGFR of 9 and protein corrected calcium of 6.1 on initial lab results. He is admitted to the hospitalist service for acute renal failure. Acute renal failure Slightly improved with IV hydration Nephrology following Continue to monitor renal function Avoid nephrotoxins Monitor creatinine and BUN Monitor I&O Hypocalcemia Supplement Follow calcium levels Follow on telemetry REPLACE WITH IV Hematuria Possible UTI Continue IV Rocephin Probiotics Follow urine cultures CONSULT UROLOGY Anemia Follow CBC Etiology may be related to renal disease TRANSFUSE 1 UNIT PRBC Tobacco abuse Cessation recommended DVT prophylaxis SCDs Code Status: FULL CODE Discussed Condition With: RN AND PT AND CM Discharge Planning: PENDING IMPROVEMENT OF KIDNEYS OR NEED FOR HD
[2018-02-26] MEDS: Sodium Bicarbonate 8.4% Inj 50 MEQ in Sodium Chloride 0.45 % Inj 950 ML IV.CONT SCH (16:35)
--- NOTE | 2018-02-26 16:50 | P.PNNP ---
Subjective Interval history: Patient was seen in bed, no distress, no complaints. Patient's renal function has slightly improved remains stable. Patient stated that he has less hematuria. <Asia Spears - Last Filed: 02/26/18 16:54> Physical Exam Vital signs: Vital Signs 02/25/18 20:00 02/25/18 23:50 02/26/18 02:33 Temperature 98.4 F 99.1 F Pulse Rate 65 57 L 52 L Respiratory Rate 16 16 Blood Pressure 127/60 120/57 L Pulse Oximetry 97 97 02/26/18 04:00 02/26/18 07:34 02/26/18 12:00 Temperature 97.6 F 98.8 F 98.5 F Pulse Rate 56 L 58 L 60 Respiratory Rate 16 12 12 Blood Pressure 119/69 132/64 148/56 H Pulse Oximetry 99 98 100 02/26/18 12:21 02/26/18 12:45 Temperature 97.8 F 99.1 F Pulse Rate 61 67 Respiratory Rate 18 16 Blood Pressure 157/70 H 147/67 H Pulse Oximetry 97 Intake & Output 02/25/18 02/26/18 02/26/18 18:59 06:59 18:59 Intake Total 1500 / 1500 1000 / 1000 1520 / 1520 Balance 1500 / 1500 1000 / 1000 1520 / 1520 Intake: IV 1000 / 1000 1000 / 1000 1120 / 1120 Sodium Bicarbonate 8.4% Inj 150 900 / 900 MEQ In NS Inj 850 ML @ 100 mls /hr IV.CONT .Q10H [facility] Rx#: [id number] Sodium Bicarbonate 8.4% Inj 150 1000 / 1000 1000 / 1000 MEQ In Sterile Water for Inj 850 ML @ 100 mls/hr IV.CONT . Q10H [facility] Rx#:[id number] Calcium Gluconate Inj 2 GM In 120 / 120 D5W Inj 100 ML @ 120 mls/hr IV. SIG ONCE ONE Rx#:[id number] Rocephin Inj 1,000 MG In NS Inj 100 / 100 100 ML @ 200 mls/hr IV.SIG Q24H [facility] Rx#:[id number] Oral 500 / 500 Intake (Blood Product) Amt 400 / 400 Rbc As-3 Leukoreduced Unit 400 / 400 [id number] Other: # Voids 6 Date of Last Bowel Movement 02/24/18 - Constitutional no acute distress - Routine HEENT Exam Head: Present: normocephalic Eye: Present: EOMI, PERRL ENT: Present: mucous membranes moist - Routine Neck Exam Present: trachea midline - Routine Respiratory Exam Present: CTA bilaterally. Absent: respiratory distress - Routine Cardiovascular Exam Present: RRR, S1, S2 - Routine Abdominal Exam Present: soft, normoactive bowel sounds - Routine Extremities Exam Present: pulses intact. Absent: edema - Routine Skin Exam Comments: Patient had two large cysts on his upper back. - Routine Neurological Exam Present: alert, oriented X3 - Routine Psychiatric Exam Present: normal affect <Asia Spears - Last Filed: 02/26/18 16:54> Vital signs: Vital Signs 02/25/18 20:00 02/25/18 23:50 02/26/18 02:33 Temperature 98.4 F 99.1 F Pulse Rate 65 57 L 52 L Respiratory Rate 16 16 Blood Pressure 127/60 120/57 L Pulse Oximetry 97 97 02/26/18 04:00 02/26/18 07:34 02/26/18 12:00 Temperature 97.6 F 98.8 F 98.5 F Pulse Rate 56 L 58 L 60 Respiratory Rate 16 12 12 Blood Pressure 119/69 132/64 148/56 H Pulse Oximetry 99 98 100 02/26/18 12:21 02/26/18 12:45 02/26/18 16:00 Temperature 97.8 F 99.1 F 98.9 F Pulse Rate 61 67 59 L Respiratory Rate 18 16 17 Blood Pressure 157/70 H 147/67 H 142/65 H Pulse Oximetry 97 100 Intake & Output 02/25/18 02/26/18 02/26/18 18:59 06:59 18:59 Intake Total 1500 / 1500 1000 / 1000 1520 / 1520 Balance 1500 / 1500 1000 / 1000 1520 / 1520 Intake: IV 1000 / 1000 1000 / 1000 1120 / 1120 Sodium Bicarbonate 8.4% Inj 150 900 / 900 MEQ In NS Inj 850 ML @ 100 mls /hr IV.CONT .Q10H [facility] Rx#: [id number] Sodium Bicarbonate 8.4% Inj 150 1000 / 1000 1000 / 1000 MEQ In Sterile Water for Inj 850 ML @ 100 mls/hr IV.CONT . Q10H [facility] Rx#:[id number] Calcium Gluconate Inj 2 GM In 120 / 120 D5W Inj 100 ML @ 120 mls/hr IV. SIG ONCE ONE Rx#:[id number] Rocephin Inj 1,000 MG In NS Inj 100 / 100 100 ML @ 200 mls/hr IV.SIG Q24H [facility] Rx#:[id number] Oral 500 / 500 Intake (Blood Product) Amt 400 / 400 Rbc As-3 Leukoreduced Unit 400 / 400 [id number] Other: # Voids 6 Date of Last Bowel Movement 02/24/18 <Rajeev Braxton - Last Filed: 02/26/18 18:12> Assessment and Plan - Assessment (1) Acute kidney injury Code(s): N17.9 - Acute kidney failure, unspecified Status: Acute Plan: Etiology is unclear. He has gross hematuria, but there is no obstruction. He is non oliguric. He may have UTI, and infection, dehydration could have caused renal failure due to pre-renal or may have progressed to ATN. However UA is abnormal (it could be abnormal due to UTI and hematuria), and so I will order serologies. As mentioned above, we do not have labs after 2007 until this admission. It is possible that he has progressive CKD reaching ESRD or stage V CKD. He does have atrophic kidneys, severe metabolic acidosis, and anemia, all supportive of this hypothesis. Monitor. Continue bicarbonate drip as ordered. Recommend Urology evaluation. Continue antibiotic. (2) Metabolic acidosis Code(s): E87.2 - Acidosis Status: Acute Plan: continue bicarbonate drip. Monitor. May need dialysis. (3) Hematuria Code(s): R31.9 - Hematuria, unspecified Status: Acute Plan: Due to UTI? Rule out vasculitis/GN. Needs Urology evaluation as well. (4) Anemia Code(s): D64.9 - Anemia, unspecified Status: Acute Plan: Likely going to be multifactorial: anemia of chronic disease as well as blood loss. One unit of PRBC to be transfused today. <Asia Spears - Last Filed: 02/26/18 16:54> - Assessment (1) Acute kidney injury Code(s): N17.9 - Acute kidney failure, unspecified Status: Acute (2) Metabolic acidosis Code(s): E87.2 - Acidosis Status: Acute (3) Hematuria Code(s): R31.9 - Hematuria, unspecified Status: Acute (4) Anemia Code(s): D64.9 - Anemia, unspecified Status: Acute - Attending Attestation patient was seen and examined. Agree with above assessment and plan. Blood transfusion ordered. Urology consult pending. Renal function is slightly better. No immediate need for dialysis. Serologies negative so far. <Rajeev Braxton - Last Filed: 02/26/18 18:12>
--- NOTE | 2018-02-26 17:47 | P.CONURO ---
History of Present Illness Service: Consult date: 02/26/18 Requesting Physician: Anil Chester Reason for Consult: Gross hematuria Primary Care Provider: Helga Primary Care Physician Chief Complaint: Hematuria History of Present Illness: 63-year-old gentleman with recent diagnosis chronic kidney disease who was recently seen by a computer network support specialist in the [place] area who presents now with new onset gross painless hematuria that began 3 days ago. Present workup included a CT scan of the abdomen and pelvis that demonstrated bilateral atrophic kidneys consistent with chronic kidney disease without evidence of hydronephrosis, mass lesions or calculi. The bladder also was unremarkable. Urinalysis demonstrated red cells and white cells and a subsequent urine culture consistent with an E. coli urinary tract infection. Patient has been started on antibiotics and a urology consult placed regarding the hematuria. Upon further questioning, the patient denies a prior history of hematuria. He denies dysuria or flank pain. Patient has been voiding spontaneously and denies clots. He also reports that the urine has actually been clearing up since admission. Review of Systems All other systems reviewed negative except as stated in HPI PMFSH - History History Provided By: Patient - Medical History Medical History: Medical History (Last Reviewed 02/24/18 @ 21:42 by EULOGIO Chi) Kidney disease - Surgical History Surgical History: Surgical History (Last Updated 02/24/18 @ 23:21 by EULOGIO Chi) H/O hernia repair Hx of tonsillectomy - Family History Family History: Family History (Last Updated 02/24/18 @ 21:43 by EULOGIO Chi) Other Family history normal - Tobacco History Second Hand Smoke Exposure: No Tobacco Use In Past 30 Days: No Smoking Status: Heavy tobacco smoker Tobacco Type: Cigarettes - Alcohol History How Often Do You Have a Drink Containing Alcohol: Never - Substance Use History Substance History: No History of Abuse - Travel History Recent Travel in the [place] Within the Last 8 Weeks: No Recent Travel Out of the Country Within the Last 8 Weeks: No - Immunization History Tetanus Immunization: Unsure Medications and Allergies Active Medications: Active Medications Acetaminophen (Tylenol) 650 mg PO Q4H PRN PRN Reason: Temp > 100.4/AUGUST Last Admin: 02/25/18 21:22 Dose: 650 mg Bisacodyl (Dulcolax Supp) 10 mg RECTAL DAILY PRN PRN Reason: SEVERE CONSITIPATION Calcium Carbonate (Tums Chew) 500 mg CHEW BID [facility] Last Admin: 02/26/18 10:21 Dose: 500 mg Ceftriaxone Sodium 1,000 mg/ (Sodium Chloride) 100 mls @ 200 mls/hr IV.SIG Q24H [facility] Last Infusion: 02/25/18 18:35 Dose: Infused Sodium Chloride (Ns Inj) 250 mls @ 15 mls/hr IV.SIG ONCE [facility] Stop: 02/27/18 00:39 Last Admin: 02/26/18 12:35 Dose: 15 mls/hr Sodium Bicarbonate 50 meq/ (Sodium Chloride) 1,000 mls @ 75 mls/hr IV.CONT .[id number] [facility] Last Admin: 02/26/18 16:35 Dose: 75 mls/hr Lactobacillus Acidophilus (Lactinex) 1 tab PO TID [facility] Last Admin: 02/26/18 14:34 Dose: 1 tab Lactulose (Lactulose Liq) 30 ml PO DAILY PRN PRN Reason: SEVERE CONSITIPATION Ondansetron HCl (Zofran Inj) 4 mg IV.PUSH Q6H PRN PRN Reason: NAUSEA OR VOMITING Sennosides (Senokot) 17.2 mg PO Q12H PRN PRN Reason: Moderate Constipation Sodium Chloride (Ns Flush) 2 ml IV.FLUSH PRN PRN PRN Reason: FLUSH AFTER USING IV ACCESS Zolpidem Tartrate (Ambien) 5 mg PO HS PRN PRN Reason: INSOMNIA Allergies Allergy/AdvReac Type Severity Reaction Status Date / Time codeine Allergy Severe Nightmare Verified 02/24/18 16:12 Home Medications Medication Instructions Recorded Confirmed Type aspirin [Aspirin Low Dose] 81 mg PO BID 02/24/18 02/24/18 History Physical Exam Vital Signs - 24 hr 02/25/18 20:00 02/25/18 23:50 02/26/18 02:33 Temperature 98.4 F 99.1 F Pulse Rate 65 57 L 52 L Respiratory Rate 16 16 Blood Pressure 127/60 120/57 L Pulse Oximetry 97 97 02/26/18 04:00 02/26/18 07:34 02/26/18 12:00 Temperature 97.6 F 98.8 F 98.5 F Pulse Rate 56 L 58 L 60 Respiratory Rate 16 12 12 Blood Pressure 119/69 132/64 148/56 H Pulse Oximetry 99 98 100 02/26/18 12:21 02/26/18 12:45 02/26/18 16:00 Temperature 97.8 F 99.1 F 98.9 F Pulse Rate 61 67 59 L Respiratory Rate 18 16 17 Blood Pressure 157/70 H 147/67 H 142/65 H Pulse Oximetry 97 100 Physical Exam: GENERAL: This is a well-nourished, well-developed patient, in no apparent distress. SKIN: No rashes, ecchymoses or lesions. Cool and dry. HEAD: Atraumatic. Normocephalic. No temporal or scalp tenderness. EYES: Pupils equal round and reactive. Extraocular motions intact. No scleral icterus. No injection or drainage. ENT: Nose without bleeding, purulent drainage or septal hematoma. Throat without erythema, tonsillar hypertrophy or exudate. Uvula midline. Airway patent. NECK: Trachea midline. No JVD or lymphadenopathy. Supple, nontender, no meningeal signs. CARDIOVASCULAR: Regular rate and rhythm without murmurs, gallops, or rubs. RESPIRATORY: Clear to auscultation. Breath sounds equal bilaterally. No wheezes , rales, or rhonchi. GASTROINTESTINAL: Abdomen soft, non-tender, nondistended. No hepato-splenomegaly , or palpable masses. No guarding. GENITOURINARY: No CVA tenderness, bladder not distended MUSCULOSKELETAL: Extremities without clubbing, cyanosis, or edema. No joint tenderness, effusion, or edema noted. No calf tenderness. Negative Homans sign bilaterally. NEUROLOGICAL: Awake and alert. Cranial nerves II through XII intact. Motor and sensory grossly within normal limits. Five out of 5 muscle strength in all muscle groups. Normal speech. Laboratory Results - last 24 hr 02/25/18 02/25/18 02/26/18 15:11 15:11 05:55 WBC 6.0 RBC 1.90 L Hgb 6.4 L* Hct 18.9 L* MCV 99.5 MCH 33.9 MCHC 34.1 RDW 15.6 Plt Count 114 L MPV 8.9 Prelim Diff (Auto) [employer] Neut % (Auto) 68.6 Lymph % (Auto) 19.5 [place] % (Auto) 10.2 H Eos % (Auto) 1.2 Baso % (Auto) 0.5 Neut # (Auto) 4.1 Lymph # (Auto) 1.2 [place] # (Auto) 0.6 Eos # (Auto) 0.1 Baso # (Auto) 0.0 WBC Differential . Differential Comment Auto diff final Sodium Potassium Chloride Carbon Dioxide Anion Gap BUN Creatinine Estimated GFR Random Glucose Calcium Prot Corrected Calcium Phosphorus Total Bilirubin AST ALT Alkaline Phosphatase Total Protein Albumin Albumin (PEP) 3.76 Albumin/Globulin Ratio 1.67 Abgsp-8-Qplhyilqp 0.20 Zwerj-7-Pbcmdcjcd 0.62 Beta Globulins 0.61 Gamma Globulins 0.81 PEP Pathologist Comment DANYELL Screen Neg MTS Gel Crossmatch 02/26/18 02/26/18 05:55 07:31 WBC RBC Hgb Hct MCV MCH MCHC RDW Plt Count MPV Prelim Diff (Auto) Neut % (Auto) Lymph % (Auto) [place] % (Auto) Eos % (Auto) Baso % (Auto) Neut # (Auto) Lymph # (Auto) [place] # (Auto) Eos # (Auto) Baso # (Auto) WBC Differential Differential Comment Sodium 143 Potassium 3.6 Chloride 111 H Carbon Dioxide 20.8 L Anion Gap 11 BUN 76 H Creatinine 5.90 H Estimated GFR 10 L Random Glucose 87 Calcium 5.6 L* Prot Corrected Calcium 6.2 L* Phosphorus 4.2 Total Bilirubin 0.2 AST 10 L ALT 15 Alkaline Phosphatase 124 H Total Protein 5.6 L Albumin 2.5 L Albumin (PEP) Albumin/Globulin Ratio Vlata-5-Mrvohvxmi Cvxup-7-Xaqrzhvwl Beta Globulins Gamma Globulins PEP Pathologist Comment DANYELL Screen MTS Gel Crossmatch See Detail Microbiology 02/24/18 16:15 Urine Culture - Final Clean Catch Urine Escherichia coli Result Diagrams: 02/26/18 05:55 02/26/18 05:55 Imaging: ITS Impressions Abdomen/Pelvis CT 02/24/18 18:25 CONCLUSION: 1. Renal atrophy. Minimal dilatation left renal collecting system. No definite renal calculi or obstructive uropathy. Bladder unremarkable on noncontrast CT. 2. Degenerative change of the lumbar spine with mild scoliosis and multiple Schmorl's nodes. Assessment and Plan - Assessment (1) Gross hematuria Code(s): R31.0 - Gross hematuria Status: Acute - Plan Urologic impression: 1. Chronic kidney disease 2. Urinary tract infection 3. Gross hematuria likely related to urinary tract infection Recommendations: 1. Agree with present antibiotic therapy 2. Patient should follow-up with me in the office approximately 3-4 weeks after hospital discharge for reevaluation [phone]. 3. Nothing further to add at this time
[2018-02-26] MEDS: Acetaminophen 325 MG Tablet PO PRN (18:41)
[2018-02-27] MEDS: Sodium Bicarbonate 8.4% Inj 50 MEQ in Sodium Chloride 0.45 % Inj 950 ML IV.CONT SCH ×2 (05:45→17:52)
[2018-02-27 07:54] LABS: INR 1.1 Ratio; Prothrombin Time 10.7 sec (9.8-11.6)
[2018-02-27] MEDS: Lactobacillus Acidophilus/L. Spores Tablet PO SCH ×3 (08:13→17:20)
[2018-02-27 08:14] LABS: Baso % (Auto) 0.4 % (0.0-2.0); Eos # (Auto) 0.1 th/mm3 (0.0-0.4); Eos % (Auto) 2.5 % (0.0-4.0); Lymph # (Auto) 1.3 th/mm3 (1.0-4.8); Lymph % (Auto) 26.1 % (9.0-44.0); Mean Corpuscular HGB Conc 34.6 % (32.0-36.0); Mean Corpuscular Hemoglobin 33.2 pg (27.0-34.0); Mean Platelet Volume 8.9 fL (7.0-11.0); Mono # (Auto) 0.6 th/mm3 (0.0-0.9); Mono % (Auto) 11.4 % (0.0-8.0); Neut # (Auto) 3.1 th/mm3 (1.8-7.7); Neut % (Auto) 59.6 % (16.0-70.0); Platelet Count 111 th/mm3 (150-450); Red Cell Distribution Width 18.3 % (11.6-17.2); White Blood Count 5.1 th/mm3 (4.0-11.0)
[2018-02-27 08:28] LABS: Albumin 2.6 g/dL (3.4-5.0); Calcium 5.4 mg/dL (8.5-10.1); Carbon Dioxide 24.7 meq/L (21.0-32.0); Magnesium 1.5 mg/dL (1.5-2.5); Phosphorus 4.1 mg/dL (2.5-4.9); Potassium 3.2 meq/L (3.5-5.1); Thyroid Stimulating Hormone 1.61 uIU/mL (0.358-3.740); Total Protein 5.6 g/dL (6.4-8.2)
[2018-02-27 09:01] LABS: Hematocrit 20.2 % (39.0-51.0)
--- NOTE | 2018-02-27 10:44 | P.PNIM ---
Subjective Interval history: f/u; LILLIAN in no acute distress. denies pain. no dysuria and says that his hematuria is improving. no chest pain, dizziness or sob. Physical Exam Vital signs: Vital Signs 02/26/18 12:00 02/26/18 12:21 02/26/18 12:45 Temperature 98.5 F 97.8 F 99.1 F Pulse Rate 60 61 67 Respiratory Rate 12 18 16 Blood Pressure 148/56 H 157/70 H 147/67 H Pulse Oximetry 100 97 02/26/18 16:00 02/26/18 20:00 02/27/18 00:00 Temperature 98.9 F 96.6 F L 98.1 F Pulse Rate 59 L 50 L 60 Respiratory Rate 17 18 17 Blood Pressure 142/65 H 148/67 H 154/68 H Pulse Oximetry 100 97 96 02/27/18 04:00 Temperature 98.5 F Pulse Rate 46 L Respiratory Rate 18 Blood Pressure 139/84 Pulse Oximetry 95 Intake & Output 02/26/18 02/27/18 02/27/18 18:59 06:59 18:59 Intake Total 2820 / 2820 1480 / 1480 Balance 2820 / 2820 1480 / 1480 Weight 54 kg Intake: IV 1220 / 1220 1000 / 1000 Sodium Bicarbonate 8.4% Inj 50 1000 / 1000 MEQ In 1/2 Normal Saline Inj 950 ML @ 75 mls/hr IV.CONT . [id number] [facility] Rx#:[id number] Sodium Bicarbonate 8.4% Inj 150 1000 / 1000 MEQ In Sterile Water for Inj 850 ML @ 100 mls/hr IV.CONT . Q10H [facility] Rx#:[id number] Calcium Gluconate Inj 2 GM In 120 / 120 D5W Inj 100 ML @ 120 mls/hr IV. SIG ONCE ONE Rx#:[id number] Rocephin Inj 1,000 MG In NS Inj 100 / 100 100 ML @ 200 mls/hr IV.SIG Q24H [facility] Rx#:[id number] Oral 1200 / 1200 480 / 480 Intake (Blood Product) Amt 400 / 400 Rbc As-3 Leukoreduced Unit 400 / 400 [id number] Other: # Voids 4 3 Date of Last Bowel Movement 02/24/18 02/24/18 - Constitutional no acute distress - Routine Respiratory Exam Present: CTA bilaterally - Routine Cardiovascular Exam Present: RRR - Routine Abdominal Exam Present: soft - Routine Extremities Exam Comments: no pedal edema. - Routine Neurological Exam Present: alert, oriented X3 Results - Labs CBC & Chem 7: 02/27/18 06:43 02/27/18 06:43 Laboratory Results - last 24 hr 02/25/18 02/25/18 02/26/18 15:11 15:11 07:31 WBC RBC Hgb Hct MCV MCH MCHC RDW Plt Count MPV Neut % (Auto) Lymph % (Auto) [place] % (Auto) Eos % (Auto) Baso % (Auto) Neut # (Auto) Lymph # (Auto) [place] # (Auto) Eos # (Auto) Baso # (Auto) WBC Differential Differential Comment PT INR Sodium Potassium Chloride Carbon Dioxide Anion Gap BUN Creatinine Estimated GFR Random Glucose Calcium Prot Corrected Calcium Phosphorus Magnesium Total Bilirubin AST ALT Alkaline Phosphatase Total Protein Albumin PEP Pathologist Comment TSH Free T4 DANYELL Screen Neg MTS Gel Crossmatch See Detail 02/27/18 02/27/18 02/27/18 06:43 06:43 06:43 WBC 5.1 RBC 2.10 L Hgb 7.0 L Hct 20.2 L* MCV 96.0 D MCH 33.2 MCHC 34.6 RDW 18.3 H D Plt Count 111 L MPV 8.9 Neut % (Auto) 59.6 Lymph % (Auto) 26.1 [place] % (Auto) 11.4 H Eos % (Auto) 2.5 Baso % (Auto) 0.4 Neut # (Auto) 3.1 Lymph # (Auto) 1.3 [place] # (Auto) 0.6 Eos # (Auto) 0.1 Baso # (Auto) 0.0 WBC Differential . Differential Comment Auto diff final PT 10.7 INR 1.1 Sodium Potassium Chloride Carbon Dioxide Anion Gap BUN Creatinine Estimated GFR Random Glucose Calcium Prot Corrected Calcium Phosphorus Magnesium Total Bilirubin AST ALT Alkaline Phosphatase Total Protein Albumin PEP Pathologist Comment TSH Free T4 0.88 DANYELL Screen MTS Gel Crossmatch 02/27/18 06:43 WBC RBC Hgb Hct MCV MCH MCHC RDW Plt Count MPV Neut % (Auto) Lymph % (Auto) [place] % (Auto) Eos % (Auto) Baso % (Auto) Neut # (Auto) Lymph # (Auto) [place] # (Auto) Eos # (Auto) Baso # (Auto) WBC Differential Differential Comment PT INR Sodium 142 Potassium 3.2 L Chloride 108 H Carbon Dioxide 24.7 Anion Gap 9 BUN 68 H Creatinine 5.48 H Estimated GFR 11 L Random Glucose 89 Calcium 5.4 L* Prot Corrected Calcium 6.0 L* Phosphorus 4.1 Magnesium 1.5 Total Bilirubin 0.2 AST 12 L ALT 11 L Alkaline Phosphatase 67 Total Protein 5.6 L Albumin 2.6 L PEP Pathologist Comment TSH 1.610 Free T4 DANYELL Screen MTS Gel Crossmatch Microbiology 02/24/18 16:15 Clean Catch Urine Urine Culture - Final Escherichia coli Assessment and Plan - Plan A/P Acute renal failure Slightly improving with IV hydration Nephrology following Continue to monitor renal function Avoid nephrotoxins Monitor creatinine and BUN Monitor I&O Hypocalcemia Supplement Follow calcium levels Follow on telemetry REPLACE WITH IV Hematuria Possible UTI Continue IV Rocephin Probiotics Follow urine cultures urology consult appreciated and recommended outpatient follow-up. Anemia Follow CBC Etiology may be related to renal disease transfused with one unit of PRBC continue to monitor and transfuse if Hb< 7. Tobacco abuse Cessation recommended DVT prophylaxis SCDs Discharge Planning: w/u in progress. not ready for discharge yet.
[2018-02-27] MEDS ORDERED: Calcium Gluconate Inj 1 GM in Sodium Chlor 0.9% Inj 100 ML IV.SIG ONE (12:00)
[2018-02-27] MEDS: Sodium Bicarbonate 8.4% Inj 150 MEQ in Water for Inj, Sterile 850 ML IV.CONT SCH (14:34)
--- NOTE | 2018-02-27 17:32 | P.PNNP ---
Subjective Interval history: Patient feels better E. coli has been treated Physical Exam Vital signs: Vital Signs 02/26/18 20:00 02/27/18 00:00 02/27/18 04:00 Temperature 96.6 F L 98.1 F 98.5 F Pulse Rate 50 L 60 46 L Respiratory Rate 18 17 18 Blood Pressure 148/67 H 154/68 H 139/84 Pulse Oximetry 97 96 95 02/27/18 08:00 02/27/18 12:00 Temperature 97.8 F 97.3 F L Pulse Rate 51 L 50 L Respiratory Rate 14 16 Blood Pressure 151/66 H 147/60 H Pulse Oximetry 98 100 Intake & Output 02/26/18 02/27/18 02/27/18 18:59 06:59 18:59 Intake Total 2820 / 2820 1480 / 1480 1125 / 1125 Balance 2820 / 2820 1480 / 1480 1125 / 1125 Weight 54 kg Intake: IV 1220 / 1220 1000 / 1000 1125 / 1125 Sodium Bicarbonate 8.4% Inj 50 1000 / 1000 MEQ In 1/2 Normal Saline Inj 950 ML @ 75 mls/hr IV.CONT . [id number] [facility] Rx#:[id number] Sodium Bicarbonate 8.4% Inj 150 1000 / 1000 MEQ In Sterile Water for Inj 850 ML @ 100 mls/hr IV.CONT . Q10H [facility] Rx#:[id number] Calcium Gluconate Inj 2 GM In 120 / 120 D5W Inj 100 ML @ 120 mls/hr IV. SIG ONCE ONE Rx#:[id number] Calcium Gluconate Inj 1 GM In 110 / 110 NS Inj 100 ML @ 110 mls/hr IV. SIG ONCE ONE Rx#:[id number] Rocephin Inj 1,000 MG In NS Inj 100 / 100 100 ML @ 200 mls/hr IV.SIG Q24H [facility] Rx#:[id number] Oral 1200 / 1200 480 / 480 Intake (Blood Product) Amt 400 / 400 Rbc As-3 Leukoreduced Unit 400 / 400 [id number] Other: # Voids 4 3 Date of Last Bowel Movement 02/24/18 02/24/18 Narrative: GENERAL: NAD, A&Ox3 HEAD: Normocephalic. NECK: Supple, trachea midline. No lymphadenopathy. EYES: No scleral icterus. No injection or drainage. CARDIOVASCULAR: Regular rate and rhythm without murmurs, gallops, or rubs. RESPIRATORY: Breath sounds equal bilaterally. No accessory muscle use. GASTROINTESTINAL: Abdomen soft, non-tender, nondistended. MUSCULOSKELETAL: No cyanosis, or edema. SKIN: Warm and dry. NEURO: No focal neurological deficits. Assessment and Plan - Assessment (1) Acute kidney injury Code(s): N17.9 - Acute kidney failure, unspecified Status: Acute Plan: Etiology is unclear. He has gross hematuria, but there is no obstruction. He is non oliguric. He may have UTI, and infection, dehydration could have caused renal failure due to pre-renal or may have progressed to ATN. However UA is abnormal (it could be abnormal due to UTI and hematuria), and so I will order serologies. As mentioned above, we do not have labs after 2007 until this admission. It is possible that he has progressive CKD reaching ESRD or stage V CKD. He does have atrophic kidneys, severe metabolic acidosis, and anemia, all supportive of this hypothesis. Monitor. Continue bicarbonate drip as ordered. UTI E. coli causing hematuria which is improving creatinine is slowly improving as well we will continue to monitor Appreciate your urological input (2) Metabolic acidosis Code(s): E87.2 - Acidosis Status: Acute Plan: continue bicarbonate drip. Monitor. May need dialysis. (3) Hematuria Code(s): R31.9 - Hematuria, unspecified Status: Acute Plan: Due to UTI? Rule out vasculitis/GN. Needs Urology evaluation as well. (4) Anemia Code(s): D64.9 - Anemia, unspecified Status: Acute Plan: Likely going to be multifactorial: anemia of chronic disease as well as blood loss. One unit of PRBC to be transfused today.
[2018-02-28] MEDS: Lactobacillus Acidophilus/L. Spores Tablet PO SCH ×3 (08:34→17:38)
[2018-02-28] MEDS: Sodium Bicarbonate 8.4% Inj 50 MEQ in Sodium Chloride 0.45 % Inj 950 ML IV.CONT SCH ×2 (08:34→20:22)
[2018-02-28 09:48] LABS: Baso % (Auto) 0.7 % (0.0-2.0); Eos # (Auto) 0.2 th/mm3 (0.0-0.4); Eos % (Auto) 3.2 % (0.0-4.0); Hematocrit 22.5 % (39.0-51.0); Hemoglobin 7.9 gm/dL (13.0-17.0); Lymph # (Auto) 1.3 th/mm3 (1.0-4.8); Lymph % (Auto) 26.4 % (9.0-44.0); Mean Corpuscular HGB Conc 35.2 % (32.0-36.0); Mean Corpuscular Hemoglobin 33.6 pg (27.0-34.0); Mean Corpuscular Volume 95.3 fL (80.0-100.0); Mean Platelet Volume 8.9 fL (7.0-11.0); Mono # (Auto) 0.6 th/mm3 (0.0-0.9); Mono % (Auto) 11.1 % (0.0-8.0); Neut # (Auto) 2.9 th/mm3 (1.8-7.7); Neut % (Auto) 58.6 % (16.0-70.0); Platelet Count 122 th/mm3 (150-450); Red Blood Count 2.36 mil/mm3 (4.50-5.90); Red Cell Distribution Width 17.8 % (11.6-17.2)
--- NOTE | 2018-02-28 10:12 | P.PNIM ---
Subjective Interval history: f/u; LILLIAN in no acute distress. denies pain. no new complaints. Physical Exam Vital signs: Vital Signs 02/27/18 12:00 02/27/18 16:00 02/27/18 20:00 Temperature 97.3 F L 97.4 F L 98.0 F Pulse Rate 50 L 56 L 54 L Respiratory Rate 16 18 16 Blood Pressure 147/60 H 183/77 H 166/70 H Pulse Oximetry 100 100 99 02/28/18 00:00 02/28/18 04:00 02/28/18 08:00 Temperature 98.4 F 98.4 F 97.9 F Pulse Rate 52 L 57 L 55 L Respiratory Rate 16 16 19 Blood Pressure 149/70 H 139/77 159/68 H Pulse Oximetry 99 97 96 Intake & Output 02/27/18 02/28/18 02/28/18 19:59 06:59 18:59 Intake Total 250 / 250 Balance 250 / 250 Weight Intake: IV 250 / 250 Sodium Bicarbonate 8.4% Inj 50 250 / 250 MEQ In 1/2 Normal Saline Inj 950 ML @ 75 mls/hr IV.CONT . [id number] [facility] Rx#:[id number] Calcium Gluconate Inj 1 GM In NS Inj 100 ML @ 110 mls/hr IV. SIG ONCE ONE Rx#:[id number] Rocephin Inj 1,000 MG In NS Inj 100 ML @ 200 mls/hr IV.SIG Q24H [facility] Rx#:[id number] Oral Other: # Voids Date of Last Bowel Movement 02/24/18 # Bowel Movements - Constitutional no acute distress - Routine Respiratory Exam Present: CTA bilaterally - Routine Cardiovascular Exam Present: RRR - Routine Abdominal Exam Present: soft - Routine Extremities Exam Comments: no pedal edema. - Routine Neurological Exam Present: alert, oriented X3 Results - Labs CBC & Chem 7: 02/28/18 08:53 02/27/18 06:43 Laboratory Results - last 24 hr 02/24/18 02/27/18 02/28/18 23:35 06:43 08:53 WBC 5.0 RBC 2.36 L Hgb 7.9 L Hct 22.5 L MCV 95.3 MCH 33.6 MCHC 35.2 RDW 17.8 H Plt Count 122 L MPV 8.9 Neut % (Auto) 58.6 Lymph % (Auto) 26.4 [place] % (Auto) 11.1 H Eos % (Auto) 3.2 Baso % (Auto) 0.7 Neut # (Auto) 2.9 Lymph # (Auto) 1.3 [place] # (Auto) 0.6 Eos # (Auto) 0.2 Baso # (Auto) 0.0 WBC Differential . Differential Comment Auto diff final Thrombin Time 17 Hemoglobin A1c 5.0 Assessment and Plan - Plan A/P Acute renal failure Slightly improving with IV hydration Nephrology following Continue to monitor renal function Avoid nephrotoxins Monitor creatinine and BUN Monitor I&O Hypocalcemia Supplement Follow calcium levels Follow on telemetry Hematuria Possible UTI Continue IV Rocephin Probiotics UC with E-Coli urology consult appreciated and recommended outpatient follow-up. Anemia Follow CBC- H/H stable Etiology may be related to renal disease previously transfused with one unit of PRBC continue to monitor and transfuse if Hb< 7. Tobacco abuse Cessation recommended DVT prophylaxis SCDs Discharge Planning: w/u in progress. not ready for discharge yet.
[2018-02-28 10:18] LABS: Calcium 5.4 mg/dL (8.5-10.1); Carbon Dioxide 25.9 meq/L (21.0-32.0); Potassium 3.3 meq/L (3.5-5.1)
[2018-02-28 10:45] LABS: Total Protein 6.2 g/dL (6.4-8.2)
--- NOTE | 2018-02-28 17:59 | P.PNNP ---
Physical Exam Vital signs: Vital Signs 02/27/18 20:00 02/28/18 00:00 02/28/18 04:00 Temperature 98.0 F 98.4 F 98.4 F Pulse Rate 54 L 52 L 57 L Respiratory Rate 16 16 16 Blood Pressure 166/70 H 149/70 H 139/77 Pulse Oximetry 99 99 97 02/28/18 08:00 02/28/18 12:00 02/28/18 16:00 Temperature 97.9 F 98.3 F 98.0 F Pulse Rate 55 L 58 L 53 L Respiratory Rate 19 18 18 Blood Pressure 159/68 H 149/72 H 149/67 H Pulse Oximetry 96 98 95 Intake & Output 02/27/18 02/28/18 02/28/18 19:59 06:59 18:59 Intake Total 250 / 250 Balance 250 / 250 Weight Intake: IV 250 / 250 Sodium Bicarbonate 8.4% Inj 50 250 / 250 MEQ In 1/2 Normal Saline Inj 950 ML @ 75 mls/hr IV.CONT . [id number] [facility] Rx#:[id number] Calcium Gluconate Inj 1 GM In NS Inj 100 ML @ 110 mls/hr IV. SIG ONCE ONE Rx#:[id number] Rocephin Inj 1,000 MG In NS Inj 100 ML @ 200 mls/hr IV.SIG Q24H [facility] Rx#:[id number] Oral Other: # Voids Date of Last Bowel Movement 02/24/18 # Bowel Movements Narrative: GENERAL: NAD, A&Ox3 HEAD: Normocephalic. NECK: Supple, trachea midline. No lymphadenopathy. EYES: No scleral icterus. No injection or drainage. CARDIOVASCULAR: Regular rate and rhythm without murmurs, gallops, or rubs. RESPIRATORY: Breath sounds equal bilaterally. No accessory muscle use. GASTROINTESTINAL: Abdomen soft, non-tender, nondistended. MUSCULOSKELETAL: No cyanosis, or edema. SKIN: Warm and dry. NEURO: No focal neurological deficits. Assessment and Plan - Assessment (1) Acute kidney injury Code(s): N17.9 - Acute kidney failure, unspecified Status: Acute Plan: Etiology is unclear. He has gross hematuria, but there is no obstruction. He is non oliguric. He may have UTI, and infection, dehydration could have caused renal failure due to pre-renal or may have progressed to ATN. However UA is abnormal (it could be abnormal due to UTI and hematuria), and so I will order serologies. As mentioned above, we do not have labs after 2007 until this admission. It is possible that he has progressive CKD reaching ESRD or stage V CKD. He does have atrophic kidneys, severe metabolic acidosis, and anemia, all supportive of this hypothesis. Monitor. Continue bicarbonate drip as ordered. UTI E. coli causing hematuria which is improving creatinine is slowly improving as well we will continue to monitor Appreciate your urological input replace potassium Dr. Braxton to follow creatinine did decline (2) Metabolic acidosis Code(s): E87.2 - Acidosis Status: Acute Plan: continue bicarbonate drip. Monitor. May need dialysis. (3) Hematuria Code(s): R31.9 - Hematuria, unspecified Status: Acute Plan: Due to UTI? Rule out vasculitis/GN. Needs Urology evaluation as well. (4) Anemia Code(s): D64.9 - Anemia, unspecified Status: Acute Plan: Likely going to be multifactorial: anemia of chronic disease as well as blood loss. One unit of PRBC to be transfused today.
[2018-03-01] MEDS: Lactobacillus Acidophilus/L. Spores Tablet PO SCH ×3 (09:45→18:24)
--- NOTE | 2018-03-01 10:33 | P.PNIM ---
Subjective Interval history: f/u; LILLIAN in no acute distress. denies pain. urine is now clear. no new complaints. Physical Exam Vital signs: Vital Signs 02/28/18 12:00 02/28/18 16:00 02/28/18 20:00 Temperature 98.3 F 98.0 F 98.4 F Pulse Rate 58 L 53 L 53 L Respiratory Rate 18 18 16 Blood Pressure 149/72 H 149/67 H 144/68 H Pulse Oximetry 98 95 98 03/01/18 00:00 03/01/18 04:00 03/01/18 08:00 Temperature 98.1 F 98.3 F 98.1 F Pulse Rate 55 L 50 L 59 L Respiratory Rate 16 16 18 Blood Pressure 150/67 H 161/69 H 188/81 H Pulse Oximetry 98 95 97 Intake & Output 02/28/18 03/01/18 03/01/18 18:59 06:59 18:59 Intake Total 850 / 850 1340 / 1340 Balance 850 / 850 1340 / 1340 Weight 58.6 kg Intake: IV 250 / 250 1100 / 1100 Sodium Bicarbonate 8.4% Inj 50 250 / 250 1000 / 1000 MEQ In 1/2 Normal Saline Inj 950 ML @ 75 mls/hr IV.CONT . [id number] [facility] Rx#:[id number] Rocephin Inj 1,000 MG In NS Inj 100 / 100 100 ML @ 200 mls/hr IV.SIG Q24H [facility] Rx#:[id number] Oral 600 / 600 240 / 240 Other: # Voids 4 2 Date of Last Bowel Movement 02/24/18 02/24/18 # Bowel Movements 1 1 - Constitutional no acute distress - Routine Respiratory Exam Present: CTA bilaterally - Routine Cardiovascular Exam Present: RRR - Routine Abdominal Exam Present: soft - Routine Extremities Exam Comments: no pedal edema. - Routine Neurological Exam Present: alert, oriented X3 Results - Labs CBC & Chem 7: 02/28/18 08:53 02/28/18 08:53 Laboratory Results - last 24 hr 02/28/18 08:53 Prot Corrected Calcium 5.8 L* Total Protein 6.2 L D Assessment and Plan - Plan A/P Acute renal failure Slightly improving with IV hydration Nephrology following Continue to monitor renal function Avoid nephrotoxins Monitor creatinine and BUN Monitor I&O BMP today pending. Hypocalcemia Supplement Follow calcium levels Follow on telemetry Hematuria- resolved. Possible UTI Continue IV Rocephin Probiotics UC with E-Coli urology consult appreciated and recommended outpatient follow-up. Anemia Follow CBC- H/H stable Etiology may be related to renal disease previously transfused with one unit of PRBC continue to monitor and transfuse if Hb< 7. elevated BP- start on Amlodipine and continue to monitor. Tobacco abuse Cessation recommended DVT prophylaxis SCDs Discharge Planning: w/u in progress. not ready for discharge yet.
--- NOTE | 2018-03-01 10:49 | P.PNNP ---
Subjective Interval history: Renal function is slowly improving. I believe however he has advanced renal dysfunction. Seen by Urology, gross hematuria has improved. Hypocalcemia is noted. Physical Exam Vital signs: Vital Signs 02/28/18 12:00 02/28/18 16:00 02/28/18 20:00 Temperature 98.3 F 98.0 F 98.4 F Pulse Rate 58 L 53 L 53 L Respiratory Rate 18 18 16 Blood Pressure 149/72 H 149/67 H 144/68 H Pulse Oximetry 98 95 98 03/01/18 00:00 03/01/18 04:00 03/01/18 08:00 Temperature 98.1 F 98.3 F 98.1 F Pulse Rate 55 L 50 L 59 L Respiratory Rate 16 16 18 Blood Pressure 150/67 H 161/69 H 188/81 H Pulse Oximetry 98 95 97 Intake & Output 02/28/18 03/01/18 03/01/18 18:59 06:59 18:59 Intake Total 850 / 850 1340 / 1340 Balance 850 / 850 1340 / 1340 Weight 58.6 kg Intake: IV 250 / 250 1100 / 1100 Sodium Bicarbonate 8.4% Inj 50 250 / 250 1000 / 1000 MEQ In 1/2 Normal Saline Inj 950 ML @ 75 mls/hr IV.CONT . [id number] [facility] Rx#:[id number] Rocephin Inj 1,000 MG In NS Inj 100 / 100 100 ML @ 200 mls/hr IV.SIG Q24H [facility] Rx#:[id number] Oral 600 / 600 240 / 240 Other: # Voids 4 2 Date of Last Bowel Movement 02/24/18 02/24/18 # Bowel Movements 1 1 Narrative: GENERAL: alert, oriented, frail appearing. HEAD: Normocephalic. NECK: Supple, trachea midline. No lymphadenopathy. EYES: No scleral icterus. No injection or drainage. CARDIOVASCULAR: Regular rate and rhythm without murmurs, gallops, or rubs. RESPIRATORY: Breath sounds equal bilaterally. No accessory muscle use. GASTROINTESTINAL: Abdomen soft, non-tender, nondistended. MUSCULOSKELETAL: No cyanosis, or edema. SKIN: Warm and dry. NEURO: No focal neurological deficits. Assessment and Plan - Assessment (1) Acute kidney injury Code(s): N17.9 - Acute kidney failure, unspecified Status: Acute Plan: Etiology is unclear. He has gross hematuria, but there is no obstruction. He is non oliguric. He may have UTI, and infection, dehydration could have caused renal failure due to pre-renal or may have progressed to ATN. However UA is abnormal (it could be abnormal due to UTI and hematuria), and so serologies were ordered: so far negative. As mentioned above, we do not have labs after 2007 until this admission. It is possible that he has progressive CKD. He does have atrophic kidneys, had severe metabolic acidosis, and anemia, all supportive of this hypothesis. Stop bicarbonate drip at this time as acidosis has improved. No immediate need for dialysis. Increase Calcium to TID. Obtain 25 hydroxy Vitamin D level. Obtain PTH. If discharged, will see in the office. (2) Metabolic acidosis Code(s): E87.2 - Acidosis Status: Acute Plan: Improved. (3) Hematuria Code(s): R31.9 - Hematuria, unspecified Status: Acute Plan: Thought to be due to UTI. Seen by urology. Improved. Serologies negative. (4) Anemia Code(s): D64.9 - Anemia, unspecified Status: Acute Plan: Likely going to be multifactorial: anemia of chronic disease as well as blood loss. Has evidence of iron deficiency. Start Venofer.
[2018-03-01 11:10] LABS: Carbon Dioxide 26.5 meq/L (21.0-32.0); Potassium 3.8 meq/L (3.5-5.1)
[2018-03-01 11:28] LABS: Total Protein 6.1 g/dL (6.4-8.2)
[2018-03-01] MEDS: Iron Sucrose Inj 100 MG in Sodium Chlor 0.9% Inj 100 ML IV.SIG SCH (14:30)
[2018-03-01] MEDS: amLODIPine 5 MG Tablet PO SCH (14:31)
[2018-03-02 05:05] LABS: Albumin 2.5 g/dL (3.4-5.0); Calcium 5.2 mg/dL (8.5-10.1); Carbon Dioxide 25.5 meq/L (21.0-32.0); Phosphorus 3.3 mg/dL (2.5-4.9); Potassium 4.5 meq/L (3.5-5.1)
[2018-03-02] MEDS: amLODIPine 5 MG Tablet PO SCH (08:04)
[2018-03-02] MEDS: Lactobacillus Acidophilus/L. Spores Tablet PO SCH ×3 (08:04→18:08)
[2018-03-02] MEDS: Iron Sucrose Inj 100 MG in Sodium Chlor 0.9% Inj 100 ML IV.SIG SCH (08:04)
--- NOTE | 2018-03-02 10:17 | P.PNIM ---
Subjective Interval history: f/u; LILLIAN in no acute distress. looks comfortable with no new complaints. no fever. hematuria has resolved. Physical Exam Vital signs: Vital Signs 03/01/18 11:59 03/01/18 16:00 03/01/18 20:00 Temperature 97.7 F 97.7 F 98.2 F Pulse Rate 55 L 57 L 62 Respiratory Rate 16 18 17 Blood Pressure 169/72 H 151/67 H 144/62 H Pulse Oximetry 98 98 95 03/02/18 00:00 03/02/18 04:00 03/02/18 07:33 Temperature 97.4 F L 98.2 F 97.7 F Pulse Rate 59 L 58 L 56 L Respiratory Rate 18 17 16 Blood Pressure 144/67 H 150/69 H 162/72 H Pulse Oximetry 96 95 95 03/02/18 08:00 Temperature Pulse Rate 56 L Respiratory Rate Blood Pressure Pulse Oximetry Intake & Output 03/01/18 03/02/18 03/02/18 18:59 06:59 18:59 Intake Total 1105 / 1105 600 / 600 105 / 105 Balance 1105 / 1105 600 / 600 105 / 105 Weight 56.9 kg Intake: IV 1105 / 1105 100 / 100 105 / 105 Sodium Bicarbonate 8.4% Inj 50 1000 / 1000 MEQ In 1/2 Normal Saline Inj 950 ML @ 75 mls/hr IV.CONT . [id number] [facility] Rx#:[id number] Venofer Inj 100 MG In NS Inj 105 / 105 105 / 105 100 ML @ 105 mls/hr IV.SIG DAILY [facility] Rx#:[id number] Rocephin Inj 1,000 MG In NS Inj 100 / 100 100 ML @ 200 mls/hr IV.SIG Q24H [facility] Rx#:[id number] Oral 500 / 500 Other: # Voids 3 Date of Last Bowel Movement 03/02/18 - Constitutional no acute distress - Routine Respiratory Exam Present: CTA bilaterally - Routine Cardiovascular Exam Present: RRR - Routine Abdominal Exam Present: soft - Routine Extremities Exam Comments: no pedal edema. - Routine Neurological Exam Present: alert, oriented X3 Results - Labs CBC & Chem 7: 02/28/18 08:53 03/02/18 04:17 Laboratory Results - last 24 hr 03/01/18 03/01/18 03/02/18 09:57 09:57 04:17 Sodium 141 143 Potassium 3.8 4.5 Chloride 105 109 H Carbon Dioxide 26.5 25.5 Anion Gap 10 9 BUN 51 H 51 H Creatinine 4.67 H 4.59 H Estimated GFR 13 L 13 L Random Glucose 111 H 84 Calcium 5.0 L* 5.2 L* Prot Corrected Calcium 5.4 L* Phosphorus 3.3 Total Protein 6.1 L Albumin 2.5 L Vitamin D 25-Hydroxy 17.3 L Assessment and Plan - Plan A/P Acute kidney injury Nephrology following Continue to monitor renal function Avoid nephrotoxins f/u with nephrology as outpatient Hypocalcemia will continue calcium and add calcitriol Hematuria- resolved. Possible UTI treated with IV Rocephin Probiotics UC with E-Coli urology consult appreciated and recommended outpatient follow-up. Anemia Follow CBC- H/H stable Etiology may be related to renal disease previously transfused with one unit of PRBC continue to monitor and transfuse if Hb< 7. CBC today pending. elevated BP- start on Amlodipine and continue to monitor. Tobacco abuse Cessation recommended DVT prophylaxis SCDs Discharge Planning: dc home tomorrow. see med list. f/u; pcp and nephrology. d/w the patient.
--- NOTE | 2018-03-02 11:45 | P.PNNP ---
Subjective Interval history: Patient was in bed, no complaints. Patient possibly to be discharged today. <Asia Spears - Last Filed: 03/02/18 11:54> Physical Exam Vital signs: Vital Signs 03/01/18 11:59 03/01/18 16:00 03/01/18 20:00 Temperature 97.7 F 97.7 F 98.2 F Pulse Rate 55 L 57 L 62 Respiratory Rate 16 18 17 Blood Pressure 169/72 H 151/67 H 144/62 H Pulse Oximetry 98 98 95 03/02/18 00:00 03/02/18 04:00 03/02/18 07:33 Temperature 97.4 F L 98.2 F 97.7 F Pulse Rate 59 L 58 L 56 L Respiratory Rate 18 17 16 Blood Pressure 144/67 H 150/69 H 162/72 H Pulse Oximetry 96 95 95 03/02/18 08:00 03/02/18 11:22 Temperature 98.3 F Pulse Rate 56 L 63 Respiratory Rate 14 Blood Pressure 157/72 H Pulse Oximetry 100 Intake & Output 03/01/18 03/02/18 03/02/18 18:59 06:59 18:59 Intake Total 1105 / 1105 600 / 600 105 / 105 Balance 1105 / 1105 600 / 600 105 / 105 Weight 56.9 kg Intake: IV 1105 / 1105 100 / 100 105 / 105 Sodium Bicarbonate 8.4% Inj 50 1000 / 1000 MEQ In 1/2 Normal Saline Inj 950 ML @ 75 mls/hr IV.CONT . [id number] [facility] Rx#:[id number] Venofer Inj 100 MG In NS Inj 105 / 105 105 / 105 100 ML @ 105 mls/hr IV.SIG DAILY [facility] Rx#:[id number] Rocephin Inj 1,000 MG In NS Inj 100 / 100 100 ML @ 200 mls/hr IV.SIG Q24H [facility] Rx#:[id number] Oral 500 / 500 Other: # Voids 3 Date of Last Bowel Movement 03/02/18 - Constitutional no acute distress - Routine HEENT Exam Head: Present: normocephalic Eye: Present: EOMI, PERRL ENT: Present: mucous membranes moist - Routine Neck Exam Present: trachea midline. Absent: tracheal deviation - Routine Respiratory Exam Present: CTA bilaterally - Routine Cardiovascular Exam Present: RRR - Routine Abdominal Exam Absent: tenderness - Routine Extremities Exam Absent: edema - Routine Skin Exam Present: intact - Routine Neurological Exam Present: alert, oriented X3 <Asia Spears - Last Filed: 03/02/18 11:54> Vital signs: Vital Signs 03/01/18 16:00 03/01/18 20:00 03/02/18 00:00 Temperature 97.7 F 98.2 F 97.4 F L Pulse Rate 57 L 62 59 L Respiratory Rate 18 17 18 Blood Pressure 151/67 H 144/62 H 144/67 H Pulse Oximetry 98 95 96 03/02/18 04:00 03/02/18 07:33 03/02/18 08:00 Temperature 98.2 F 97.7 F Pulse Rate 58 L 56 L 56 L Respiratory Rate 17 16 Blood Pressure 150/69 H 162/72 H Pulse Oximetry 95 95 03/02/18 11:22 Temperature 98.3 F Pulse Rate 63 Respiratory Rate 14 Blood Pressure 157/72 H Pulse Oximetry 100 Intake & Output 03/01/18 03/02/18 03/02/18 18:59 06:59 18:59 Intake Total 1105 / 1105 600 / 600 105 / 105 Balance 1105 / 1105 600 / 600 105 / 105 Weight 56.9 kg Intake: IV 1105 / 1105 100 / 100 105 / 105 Sodium Bicarbonate 8.4% Inj 50 1000 / 1000 MEQ In 1/2 Normal Saline Inj 950 ML @ 75 mls/hr IV.CONT . [id number] [facility] Rx#:[id number] Venofer Inj 100 MG In NS Inj 105 / 105 105 / 105 100 ML @ 105 mls/hr IV.SIG DAILY [facility] Rx#:[id number] Rocephin Inj 1,000 MG In NS Inj 100 / 100 100 ML @ 200 mls/hr IV.SIG Q24H [facility] Rx#:[id number] Oral 500 / 500 Other: # Voids 3 Date of Last Bowel Movement 03/02/18 <Rajeev Braxton - Last Filed: 03/02/18 12:49> Assessment and Plan - Assessment (1) Acute kidney injury Code(s): N17.9 - Acute kidney failure, unspecified Status: Acute Plan: Etiology is unclear. It is possible that he has progressive CKD. Renal function is currently stable. No immediate need for dialysis. Start patient on Calcitriol. Instructed patient to follow up in the office in one month. (2) Metabolic acidosis Code(s): E87.2 - Acidosis Status: Acute Plan: Improved. (3) Hematuria Code(s): R31.9 - Hematuria, unspecified Status: Acute Plan: Thought to be due to UTI. Seen by urology. Improved. Serologies negative. (4) Anemia Code(s): D64.9 - Anemia, unspecified Status: Acute Plan: Likely going to be multifactorial: anemia of chronic disease as well as blood loss. Has evidence of iron deficiency. Start Venofer. <Asia Spears - Last Filed: 03/02/18 11:54> - Assessment (1) Acute kidney injury Code(s): N17.9 - Acute kidney failure, unspecified Status: Acute (2) Metabolic acidosis Code(s): E87.2 - Acidosis Status: Acute (3) Hematuria Code(s): R31.9 - Hematuria, unspecified Status: Acute (4) Anemia Code(s): D64.9 - Anemia, unspecified Status: Acute - Attending Attestation patient was seen and examined. Renal function is slightly better. Possible discharge today. Should be on Vitamin D3 and Calcitriol. PTH is pending. Outpatient followup. <Rajeev Braxton - Last Filed: 03/02/18 12:49>
--- NOTE | 2018-03-02 11:57 | P.DCO ---
- Physical Therapy Order: Evaluate and treat - Home Health Nursing Order: Medical education, Signs/symptoms of disease process, Medication education-adverse effect, Nursing assessment with vital signs - Case Management Consult Yes - Certification I have seen patient Cj Melton on 03/02/18. My clinical findings support the need for the requested home health care services because: Limited mobility due to disease progression I certify that my clinical findings support that this patient is homebound because: Unsteady gait/balance
--- NOTE | 2018-03-02 14:48 | P.DCO ---
- Home Health Nursing Order: Medical education, Signs/symptoms of disease process, Medication education-adverse effect, Nursing assessment with vital signs - Case Management Consult Yes - Certification I have seen patient Cj Melton on 03/02/18. My clinical findings support the need for the requested home health care services because: Limited mobility due to disease progression I certify that my clinical findings support that this patient is homebound because: Impaired cognitive ability/safety
[2018-03-03 05:08] LABS: Hematocrit 21.5 % (39.0-51.0); Hemoglobin 7.3 gm/dL (13.0-17.0); Mean Corpuscular HGB Conc 33.9 % (32.0-36.0); Mean Corpuscular Hemoglobin 32.7 pg (27.0-34.0); Mean Corpuscular Volume 96.6 fL (80.0-100.0); Mean Platelet Volume 8.8 fL (7.0-11.0); Platelet Count 120 th/mm3 (150-450); Red Blood Count 2.23 mil/mm3 (4.50-5.90); Red Cell Distribution Width 17.2 % (11.6-17.2); White Blood Count 4.8 th/mm3 (4.0-11.0)
[2018-03-03] MEDS: Iron Sucrose Inj 100 MG in Sodium Chlor 0.9% Inj 100 ML IV.SIG SCH (08:56)
[2018-03-03] MEDS: amLODIPine 5 MG Tablet PO SCH (09:03)
[2018-03-03] MEDS: Lactobacillus Acidophilus/L. Spores Tablet PO SCH (09:03)
--- NOTE | 2018-03-03 10:16 | P.DS ---
Date of admission: 02/24/18 20:05 Primary care physician: No Primary Care Physician Brief History from admission: Mr. Melotn is a 63-year-old male with a history of renal insufficiency who presents to the emergency room on 02/24/2018 complaining of hematuria for 2 days. The patient has seen a scientific software developer in the [facility] but has not followed up in over a year. He was originally sent for evaluation when preop labs for cataract surgery showed abnormal renal function about 15-18 months ago. The patient states the cause of the renal dysfunction was never determined and he was encouraged to join a clinical research trial but states he was unable to do so given the commute time required to do that. He was seeing a primary care doctor, Dr. Sanchez, but he has also not followed up with the primary care doctor in over a year. He states he received cardiac clearance from a doctor in [place] for the cataract surgery and proceeded to get the cataract repaired surgically with the cardiology clearance only and this also occurred about 15 months ago. He reports recent weight loss of 4 pounds in the past 5 weeks, fatigue, and muscle cramps. He reports urinary frequency but denies any other urinary symptoms other than hematuria. He denies any fevers, chills, chest pains, nausea or vomiting or diarrhea. He was found to have BUN of 80, creatinine 6.37, EGFR of 9 and protein corrected calcium of 6.1 on initial lab results. He is admitted to the hospitalist service for acute renal failure. DS: Medications - Discharge Medications Prescriptions: amlodipine [Norvasc] 5 mg PO DAILY 30 Days #30 tab calcitriol 0.25 mcg PO DAILY 30 Days #30 cap calcium carbonate 500 mg CHEW TID 30 Days #225 tab DS: Summary Hospital Course: Acute kidney injury Nephrology following Continue to monitor renal function Avoid nephrotoxins f/u with nephrology as outpatient; this was previously d/w . Hypocalcemia will continue calcium and add calcitriol Hematuria- resolved. Possible UTI treated with IV Rocephin Probiotics UC with E-Coli urology consult appreciated and recommended outpatient follow-up. Anemia H/H stable and he's asymptomatic Etiology may be related to renal disease previously transfused with one unit of PRBC received IV Iron supplement f/u as outpatient. elevated BP- start on Amlodipine and continue to monitor. Tobacco abuse Cessation recommended DVT prophylaxis SCDs - Time Spent with Patient Total time spent providing and/or coordinating discharge services: Less than 30 minutes - Quality: VTE Deep Vein Thrombosis/Pulmonary Embolism Present on Admission: No Exam Vital signs: Vital Signs 03/02/18 11:22 03/02/18 16:00 03/02/18 20:00 Temperature 98.3 F 98.1 F 97.9 F Pulse Rate 63 62 55 L Respiratory Rate 14 16 18 Blood Pressure 157/72 H 152/73 H 163/69 H Pulse Oximetry 100 98 95 03/03/18 00:00 03/03/18 04:00 03/03/18 08:00 Temperature 97.4 F L 97.7 F 97.9 F Pulse Rate 56 L 55 L 58 L Respiratory Rate 18 18 13 Blood Pressure 134/64 141/65 H 160/70 H Pulse Oximetry 98 98 98 Intake & Output 03/02/18 03/03/18 03/03/18 18:59 06:59 18:59 Intake Total 105 / 105 1300 / 1300 Balance 105 / 105 1300 / 1300 Weight 56.8 kg Intake: IV 105 / 105 100 / 100 Venofer Inj 100 MG In NS Inj 105 / 105 100 ML @ 105 mls/hr IV.SIG DAILY [facility] Rx#:[id number] Rocephin Inj 1,000 MG In NS Inj 100 / 100 100 ML @ 200 mls/hr IV.SIG Q24H [facility] Rx#:[id number] Oral 1200 / 1200 Other: # Voids 3 Date of Last Bowel Movement 03/02/18 - Constitutional no acute distress - Routine Respiratory Exam Present: CTA bilaterally - Routine Cardiovascular Exam Present: RRR - Routine Abdominal Exam Present: soft - Routine Extremities Exam Comments: no pedal edema. - Routine Neurological Exam Present: alert, oriented X3 Results Procedures completed during hospitalization: none. Labs on day of discharge: Labs from last 24 hours 03/03/18 02/25/18 04:24 15:11 WBC 4.8 RBC 2.23 L Hgb 7.3 L Hct 21.5 L MCV 96.6 MCH 32.7 MCHC 33.9 RDW 17.2 Plt Count 120 L MPV 8.8 Anti-Proteinase 3 Less than 1.0 Anti-Myeloperoxidase Less than 1.0 Glomerular Base Mem IgG <1.0 - Impressions ITS Impressions Abdomen/Pelvis CT 10/31/18 18:25 CONCLUSION: 1. Renal atrophy. Minimal dilatation left renal collecting system. No definite renal calculi or obstructive uropathy. Bladder unremarkable on noncontrast CT. 2. Degenerative change of the lumbar spine with mild scoliosis and multiple Schmorl's nodes. Discharge Plan - Discharge Disposition Patient Disposition: W/Home Health Service - Discharge Condition Condition: Stable - Physicians Team Primary Care Provider: Primary Care Alfonso,Helga Attending Provider: Oxana Wilson Other Providers: Rajeev Braxton MD ; Cyrus Morton MD
--- NOTE | 2018-03-03 10:16 | P.PNIM ---
Subjective Interval history: f/u; LILLIAN in no acute distress. no chest pain, sob or dizziness. no new complaints and wants to go home today. Physical Exam Vital signs: Vital Signs 03/02/18 11:22 03/02/18 16:00 03/02/18 20:00 Temperature 98.3 F 98.1 F 97.9 F Pulse Rate 63 62 55 L Respiratory Rate 14 16 18 Blood Pressure 157/72 H 152/73 H 163/69 H Pulse Oximetry 100 98 95 03/03/18 00:00 03/03/18 04:00 03/03/18 08:00 Temperature 97.4 F L 97.7 F 97.9 F Pulse Rate 56 L 55 L 58 L Respiratory Rate 18 18 13 Blood Pressure 134/64 141/65 H 160/70 H Pulse Oximetry 98 98 98 Intake & Output 03/02/18 03/03/18 03/03/18 18:59 06:59 18:59 Intake Total 105 / 105 1300 / 1300 Balance 105 / 105 1300 / 1300 Weight 56.8 kg Intake: IV 105 / 105 100 / 100 Venofer Inj 100 MG In NS Inj 105 / 105 100 ML @ 105 mls/hr IV.SIG DAILY [facility] Rx#:[id number] Rocephin Inj 1,000 MG In NS Inj 100 / 100 100 ML @ 200 mls/hr IV.SIG Q24H [facility] Rx#:[id number] Oral 1200 / 1200 Other: # Voids 3 Date of Last Bowel Movement 03/02/18 - Constitutional no acute distress - Routine Respiratory Exam Present: CTA bilaterally - Routine Cardiovascular Exam Present: RRR - Routine Abdominal Exam Present: soft - Routine Extremities Exam Comments: no pedal edema. - Routine Neurological Exam Present: alert, oriented X3 Results - Labs CBC & Chem 7: 03/03/18 04:24 03/02/18 04:17 Laboratory Results - last 24 hr 02/25/18 03/03/18 15:11 04:24 WBC 4.8 RBC 2.23 L Hgb 7.3 L Hct 21.5 L MCV 96.6 MCH 32.7 MCHC 33.9 RDW 17.2 Plt Count 120 L MPV 8.8 Anti-Proteinase 3 Less than 1.0 Anti-Myeloperoxidase Less than 1.0 Glomerular Base Mem IgG <1.0 Assessment and Plan - Plan A/P Acute kidney injury Nephrology following Continue to monitor renal function Avoid nephrotoxins f/u with nephrology as outpatient; this was previously d/w . Hypocalcemia will continue calcium and add calcitriol Hematuria- resolved. Possible UTI treated with IV Rocephin Probiotics UC with E-Coli urology consult appreciated and recommended outpatient follow-up. Anemia H/H stable and he's asymptomatic Etiology may be related to renal disease/ Hematuria. previously transfused with one unit of PRBC received IV Iron supplement f/u as outpatient. elevated BP- start on Amlodipine and continue to monitor. Tobacco abuse Cessation recommended DVT prophylaxis SCDs Discharge Planning: dc home today. see med list. f/u; pcp and nephrology. d/w the patient. previously d/w .
== END 2018-03-03 11:37 | disposition home health service (06) ==
LOC: NEPD 14:02 → NEDA 20:05 → NEPGCP 21:41 → N07 02-26 14:46
PROVIDERS: ADMIT Internal Medicine; ATTEND Internal Medicine